=== PATIENT | male | born 1940 | race Caucasian/White ===

== ENCOUNTER → 2017-12-21 09:41 | Outpatient (CLI) | payer MEDICARE, OTHER, SELFPAY ==
[2017-12-21 11:00] LABS: PSA,Total - Annual Screen 2.59 ng/mL (0.00-4.00)
== END ==
PROVIDERS: Family Provider Family Medicine; PCP Family Medicine; Visit Provider Nurse Practitioner Adult Health
DX: Z12.5 Encounter for screening for malignant neoplasm of prostate (principal)
CPT/HCPCS: 36415; 84153; G0103

== ENCOUNTER 2018-04-07 10:34 | Inpatient (IN) | payer MEDICARE, OTHER, SELFPAY ==
[2018-04-07 10:35] VITALS: BP 135/72; PULSE 66; RESP 18; TEMP 36.4; O2SAT 99; BMI 30.4
--- NOTE | 2018-04-07 10:47 | CT_ITS ---
STUDY: CT ABDOMEN AND PELVIS WITHOUT CONTRAST REASON FOR EXAM: Male, 78 years old. Mid and lower abdominal pain with nausea and vomiting for 2 days. Previous cholecystectomy and hernia repair. RADIATION DOSAGE (If Supplied By Facility): CTDIvol = ( 10.70 ) mGy, DLP = ( 588.29 ) mGycm TECHNIQUE: Transaxial images were obtained from the dome of the diaphragm to the symphysis pubis without oral contrast, and without intravenous contrast. Sagittal and coronal images were reconstructed. Individualized dose optimization techniques were used for this CT. COMPARISON: None. FINDINGS: The visualized lung bases are unremarkable. The visualized portions of the heart are within normal limits. Normal liver. There are surgical clips in the gallbladder fossa consistent with a prior cholecystectomy. Normal spleen. Pancreas demonstrates a predominant fatty atrophic appearance with a focal area of hyperdensity within the distal body/tail is seen on series 2 image 54 with mild surrounding inflammatory stranding as seen on image 55. Normal bilateral adrenal glands. There is mild cortical atrophy of the right kidney, consistent with chronic medical renal disease. There is mild cortical atrophy of the left kidney, consistent with chronic medical renal disease. Small exophytic cyst along the anterior aspect of the left renal cortex is present. There is a small hiatal hernia. Normal small intestine. Normal colon. The appendix is visualized and appears normal. Normal abdominal aorta. Normal inferior vena cava. Normal retroperitoneum. Normal urinary bladder. There is enlargement of the prostate gland with calcification.. There is a small umbilical hernia containing fat. Suprapubic anterior abdominal wall fat-containing hernia is also noted as seen on series 2 image 83 with defect measuring 1.8 cm. Endplate degenerative changes of L3 is noted. CT/Abdomen/Pelvis without Cont IMPRESSION: 1. Prominently fatty pancreas with a distal body/tail area of hyperdensity and mild surrounding inflammation with underlying early pancreatitis not excluded. Underlying pancreatic lesion is also a consideration. Recommend follow-up imaging with MRI and clinical correlation. 2. Cholecystectomy with otherwise no evidence of additional acute intra-abdominal process. 3. Umbilical and anterior abdominal wall hernias as above. Electronically Signed: Rolan Nguyen DO at 12:27 EDT , Service support ,
--- NOTE | 2018-04-07 10:55 | ED.VISSUMM ---
- ER Visit Summary Date of Service: 04/07/18 Chief Complaint: [] Abdominal pain for a few days and vomiting History of Present Illness: The patient is a 78 M [] history of cholecystectomy distant, common bile duct type stones in 2013 requiring duodenectomy and duodenal jejunal anastomosis per information provided by , history of DVT and PE, currently on Xarelto, reports for the last few days she has had abdominal pain and vomiting he has had no fever, his bowel and bladder habits have been generally unremarkable the abdominal pain persisted he came in for evaluation Indicates his general health has been good for all the above, he had his surgery at [facility], he was discharged from the service of the surgeons sometime ago he generally does not suffer from abdominal pain, he had DVTs related to postop condition is currently on the Xarelto with no complications Physical Examination: [] He is resting comfortably in the bed his vital signs are within normal range she takes his hand and draws it diffusely across his abdomen in a circular pattern complaining of generalized pain his HEENT exam is unremarkable lungs are clear the heart tones are normal he has a vague diffuse discomfort to the abdominal area there is no obvious rebound or some mild guarding and not usually his exam is grossly unremarkable he has no complaints his upper lower extremities and back are unremarkable he is awake and alert answering questions appropriately Test Results: [] Emergency Department Course and Treatment: [] Given all of the above IV fluids pain management labs CT Patient's lab studies are generally unremarkable see those reports, his CT abdomen shows what appears to be inflammation primarily in the mid to tail portion of the pancreas cannot exclude lesion per the radiologist, there is no sign of hepatobiliary dysfunction or common bile duct stone or intrahepatic duct dilatation which he has suffered from in the past, he has required multiple doses of morphine given all the above I have asked the hospital seen further management admission Treatment Plan: [] Disposition: [] Admit stable Impression: [] Intractable abdominal pain vomiting pancreatitis This note was generated with [employer] dictation software. It may contain incorrect words, spelling, and punctuation that were not noted in review of the chart prior to signing ED Disposition - Plan for ED Patient: Chief Complaint: Abd Pain Referrals: Pedro Gonzalez MD [Primary Care Provider] -
[2018-04-07] MEDS: Morphine 4 MG/ML Syringe IV (11:11)
[2018-04-07] MEDS: 0.9% Normal Saline 1,000 ML 125 ML IV ×2 (11:11→16:40)
[2018-04-07] MEDS: Ondansetron 4 MG/2 ML Vial IV ×2 (11:12→14:25)
[2018-04-07 11:18] LABS: Absolute Lymphocyte Count 1.59 X10^3/ul (0.83-4.51); Absolute Neutrophil Count 6.2 X10^3/uL (2.0-7.7); Basophil# 0.02 X10^3/uL; Basophil% 0.2 % (0-1); Eosinophil# 0.05 X10^3/uL; Eosinophils% 0.6 % (0-5); Hematocrit 46.7 % (40-54); Hemoglobin 15.8 g/dl (13.0-16.5); Lymphocyte # 1.59 X10^3/ul (4.0); Lymphocyte % 17.7 % (19-41); Mean Corp Hgb Conc 33.8 g/gl (32-36); Mean Corpuscular Hgb 30.7 pg (27.0-32.0); Mean Corpuscular Volume 90.7 fL (80-94); Mean Platelet Vol. 8.9 fl (6.2-12.0); Monocyte# 1.09 X10^3/uL; Monocyte% 12.1 % (0-10); Neutrophil # 6.22 X10^3/uL (2.7-7.7); Neutrophil % 69.3 % (47-70); POSITIVE COUNT NO; POSITIVE DIFFERENTIAL NO; POSITIVE MORPHOLOGY NO; Platelet Count 170 K/mm3 (150-450); RBC Distribution Width CV 12.6 % (11.6-14.6); RBC Distribution Width SD 41.2 fl (35.1-43.9); Red Blood Count 5.15 M/mm3 (4.6-6.2)
[2018-04-07 11:32] LABS: AST(SGOT) 17 U/L (15-37); Alanine Aminotransfer ALT/SGPT 27 U/L (16-61); Albumin, Serum 3.4 g/dL (3.2-5.0); Alkaline Phosphatase 76 U/L (45-117); Anion Gap 8 (5-15); BUN 12 mg/dL (7-18); BUN/Creat Ratio 11.4 RATIO (10-20); Bilirubin, Direct 0.19 mg/dL (0.00-0.30); Calcium,Total 8.4 mg/dL (8.5-10.1); Chloride 101 mmol/L (98-107); Creatinine, Serum 1.05 mg/dL (0.70-1.30); EST Glomerular Filtration Rate 73 mL/min (>60); Est Glom Filt Rate - Afr Amer 88 mL/min (>60); Globulin 3.2 g/dL (2.2-4.2); Glucose 101 mg/dL (74-106); Lipase 70 U/L (73-393); Potassium 3.9 mmol/L (3.5-5.1); Protein, Total 6.6 g/dL (6.4-8.2); Sodium Level 139 mmol/L (136-145)
[2018-04-07 12:18] LABS: Bacteria 0 SEEN /hpf (None Seen); Mucous, Urine 0 SEEN /hpf (<or=2+); Red Blood Cells-Urine 0 SEEN /hpf (0-5); Squamous Epithelial Cells - UA 0 SEEN /hpf (0-5)
[2018-04-07 12:31] LABS: Color, Urine Yellow (Yellow); Glucose, Dipstick Normal (Normal); Ketone-Dipstick Negative (Negative); Leukocyte Esterase-Dipstick 25 /ul (Negative); Nitrite-Dipstick Negative (Negative); Occult Blood-Urine Negative /ul (Negative); Protein-Dipstick Negative (Negative); Specific Gravity, Urine 1.015 (1.002-1.030); Urine Bilirubin Dipstick Negative (Negative); Urine Clarity Clear (Clear); Urine Urobilinogen Normal (Normal)
[2018-04-07 12:41] LABS: Amorphous Sediment 1+; White Blood Cells 0-5 SEEN /hpf (0-5)
[2018-04-07] MEDS: morphine 8 MG/ML Syringe IV (14:05)
[2018-04-07 14:10] VITALS: BP 188/85; PULSE 68; RESP 16
--- NOTE | 2018-04-07 14:31 | PCM.HP.STD ---
Problem List (1) Pancreatitis Status: Acute Qualifiers: Chronicity: acute Pancreatitis type: unspecified pancreatitis type Acute pancreatitis complication: no infection or necrosis Qualified Code(s): K85.90 - Acute pancreatitis without necrosis or infection, unspecified (2) Debility Status: Acute History of Present Illness Date of Admission: 04/07/18 Chief Complaint: abdominal pain. The patient is a 78 year old M presents with a 2 day history of epigastric abdominal pain. Associated with nausea vomiting. Patient has had a history of biliary stones that have required stents subsequently required a partial duodenal resection. seems to think that there may have been cyst that led to the patient having surgery but is unsure. Patient feels weak overall he has been using a Rollator to get himself around. 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 Patient had a CAT scan that showed a predominantly fatty pancreas with distal body/tail area of hyperdensity and mild surrounding inflammation with underlying early pancreatitis. Lesion could not be ruled out. Patient did require IV morphine to help with his pain as well as Zofran. Patient denies having previous history of pancreatitis. Though patient does note that he has had some low-grade chronic abdominal pain previously. [] Past Medical History Medical History: Medical History (Last Updated 04/07/18 @ 14:37 by Pedro Oneill DO) Anxiety F41.9 BPH (benign prostatic hyperplasia) N40.0 CVA (cerebral vascular accident) I63.9 Depression F32.9 Diverticulosis K57.90 GERD (gastroesophageal reflux disease) K21.9 Hemorrhoid K64.9 Hypothyroid E03.9 NPH (normal pressure hydrocephalus) G91.2 Urinary calculi N20.9 VTE (venous thromboembolism) I82.90 Allergies No Known Allergies Allergy (Verified 04/07/18 10:34) Home Medications: Ambulatory Orders Medication Instructions Recorded Cholecalciferol (VIT D3) [Vitamin 5,000 unit PO DAILY 08/06/14 D3] Esomeprazole Mag Trihydrate 40 mg PO DAILY 10/14/16 [Nexium] Finasteride [Proscar] 5 mg PO DAILY 10/14/16 Levothyroxine [Synthroid] 75 mcg PO MOTUWETHFRSA 10/14/16 Magnesium 400 mg PO DAILY 10/14/16 Tamsulosin HCl [Flomax] 0.4 mg PO DAILY 10/14/16 L.acidoph,Paracasei, B.lactis 1 each PO DAILY 05/24/17 [Probiotic] Rivaroxaban [Xarelto] 20 mg PO DAILY 05/24/17 Vitamin B Complex 1 each PO DAILY 05/24/17 buPROPion XL [Wellbutrin Xl] 300 mg PO DAILY 05/24/17 Surgical History: Surgical History (Last Updated 04/07/18 @ 14:39 by Pedro Oneill DO) Hx of resection of small bowel Z90.49 removal of part of duodenum. S/P cholecystectomy Z90.49 Psychiatric History: Anxiety, Depression Lives: Spouse/ Significant Other Smoking Status: Never smoker Tobacco Use: Non-smoker Alcohol: None Drugs: None - *Family History Maternal History Items: Heart Disease Review of Systems Constitutional: Reports: Anorexia. Denies: Chills, Fever Eyes: Denies: Blurred vision, Double vision HEENT: Denies: Head Aches, Sinus Congestion, Sinus Drainage Cardiovascular: Denies: Chest Pain, Palpitations Respiratory: Denies: Cough, Shortness of breath at rest, Sputum production Gastrointestinal: Reports: Abdominal Pain, Constipation, Nausea, Vomiting. Denies: Diarrhea Genitourinary: Denies: Dysuria Musculoskeletal: Denies: Joint Pain, Joint Tenderness Skin: Denies: Rash, Wounds Neurological: Reports: Balance problems. Denies: Blurred vision, Double vision, Change in Speech Psychiatric: Reports: Anxiety, Depression Hematologic/ Lymphatic: Reports: Hx of blood clot. Denies: Easy Bruising, Easy Bleeding Comment: All review of systems are negative except as mentioned in the history of present illness and the other review of systems. VTE Information - Inpt Only VTE Present on Admission: No VTE Mechan Device Prophylaxis: None VTE Pharm Prophylaxis ordered?: Yes Patient Problems: Active and Suspected Problems Pancreatitis (Acute) Debility (Acute) - Physical Exam General: Alert, Cooperative, - - uncomfortable HEENT: Atraumatic, Normocephalic Oral: Moist Mucosa, No Gingival or Mucosal Lesions/ Ulcerations Neck: No Nodes, Thyroid Normal Size and Texture Lungs: Clear to auscultation, Normal air movement, No rhonchi, No wheeze Cardiovascular: Regular rate, Regular Rhythm, Normal S1, Normal S2, No murmurs Abdomen: Bowel Sounds Present, Soft, Guarding, - - epigastric tenderness Extremities: No edema, No Calf Tenderness Skin: No rashes, No breakdown Musculoskeletal: No Tenderness to Palpation of Joints or Extremities, No Muscle Wasting Neurological: Neuro grossly intact, Muscle tone normal Psych/Mental Status: Normal Affect, Appropriate Vital Signs Temp Pulse Resp BP Pulse Ox 36.4 C L 68 16 188/85 H 99 04/07/18 10:35 04/07/18 14:10 04/07/18 14:10 04/07/18 14:10 04/07/18 10:35 Oxygen Delivery Method Room Air Weight: 90.718 kg Body Mass Index (BMI) 30.4 Laboratory Tests Past 24 Hrs 04/07/18 04/07/18 04/07/18 10:56 10:56 12:10 WBC 9.0 RBC 5.15 Hgb 15.8 Hct 46.7 MCV 90.7 MCH 30.7 MCHC 33.8 RDW 12.6 RDW Differential 41.2 Plt Count 170 MPV 8.9 Immature Gran % (Auto) 0.100 Neut % (Auto) 69.3 Lymph % (Auto) 17.7 L [place] % (Auto) 12.1 H Eos % (Auto) 0.6 Baso % (Auto) 0.2 Absolute Neuts (auto) 6.2 Absolute Lymphs (auto) 1.59 Total Counted Not Reportable Sodium 139 Potassium 3.9 Chloride 101 Carbon Dioxide 30.0 Anion Gap 8 BUN 12 Creatinine 1.05 Estim Creat Clear Calc 57.00 Est GFR (MDRD) Af Amer 88 Est GFR (MDRD) Non-Af 73 BUN/Creatinine Ratio 11.4 Glucose 101 Calcium 8.4 L Total Bilirubin 0.60 Direct Bilirubin 0.19 AST 17 ALT 27 Alkaline Phosphatase 76 Total Protein 6.6 Albumin 3.4 Globulin 3.2 Lipase 70 L Urine Color Yellow Urine Clarity Clear Urine pH 8.0 Ur Specific [place] 1.015 Urine Protein Negative Urine Glucose (UA) Normal Urine Ketones Negative Urine Occult Blood Negative Urine Nitrite Negative Urine Bilirubin Negative Urine Urobilinogen Normal Ur Leukocyte Esterase 25 H Urine RBC 0 SEEN Urine WBC 0-5 SEEN Ur Squamous Epith Cells 0 SEEN Amorphous Sediment 1+ Urine Bacteria 0 SEEN Urine Mucus 0 SEEN Clinical Impression(s) from Imaging Studies Abdomen/Pelvis CT 04/07/18 10:47 IMPRESSION: 1. Prominently fatty pancreas with a distal body/tail area of hyperdensity and mild surrounding inflammation with underlying early pancreatitis not excluded. Underlying pancreatic lesion is also a consideration. Recommend follow-up imaging with MRI and clinical correlation. 2. Cholecystectomy with otherwise no evidence of additional acute intra-abdominal process. 3. Umbilical and anterior abdominal wall hernias as above. Electronically Signed: Rolan NguyenDO at 12:27 EDT , Service support , Assessment/Plan All Active Problems Pancreatitis (Acute) Debility (Acute) 1. Acute pancreatitis Patient is status post cholecystectomy. Patient has also had duodenal partial resection Lipase was normal but CAT scan shows inflammation around the pancreas I suspect the patient has probably had chronic low-grade pancreatitis which may be a reason why he is not manifesting more elevated levels of lipase at this time Plan is to give IV fluids, IV pain control and antiemetics Given that the mass could not be ruled out rule out any other process. I doubt pancreatic cancer and explained to the patient that this is not a presentation of the cancer I did explain to the patient that if he does get worse that he would likely require transfer to tertiary facility get a specialist to do surgery on him here given his modified anatomy. Patient expressed understanding [facility] and try to see if I can get any information about the patient's previous surgeries but unfortunately the information is very limited and I saw no surgical notes. Will request records from [facility] 2. Debility Patient has baseline balance issues which may relate this prior brainstem stroke but there is also mention that he had normal pressure hydrocephalus by neurology studies previously seen There was some mention of putting shunting but that never came to be but the patient has not seen a neurologist since his last one retired 3 year Patient will be seen by physical therapy to see if he will have any therapy needs upon discharge 3. Venous thromboembolic disease: Patient is on Xarelto, to which we will continue. 4. DVT prophylaxis: Patient is anticoagulated on Xarelto 5. Advanced directives: Asked the patient about CPR, intubation and PEG tube's. Patient states that he does not want CPR nor be intubated. He did not have an answer for PEG tube at this time. Therefore, patient will be DNR Comfort Care arrest Code Visit Inpatient E&M: 07328 Init Hosp L3
--- NOTE | 2018-04-07 14:35 | HP.PCM_ITS ---
Problem List (1) Pancreatitis Status: Acute Qualifiers: Chronicity: acute Pancreatitis type: unspecified pancreatitis type Acute pancreatitis complication: no infection or necrosis Qualified Code(s): K85.90 - Acute pancreatitis without necrosis or infection, unspecified (2) Debility Status: Acute History of Present Illness Date of Admission: 04/07/18 Chief Complaint: abdominal pain. The patient is a 78 year old M presents with a 2 day history of epigastric abdominal pain. Associated with nausea vomiting. Patient has had a history of biliary stones that have required stents subsequently required a partial duodenal resection. seems to think that there may have been cyst that led to the patient having surgery but is unsure. Patient feels weak overall he has been using a Rollator to get himself around. 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 Patient had a CAT scan that showed a predominantly fatty pancreas with distal body/tail area of hyperdensity and mild surrounding inflammation with underlying early pancreatitis. Lesion could not be ruled out. Patient did require IV morphine to help with his pain as well as Zofran. Patient denies having previous history of pancreatitis. Though patient does note that he has had some low-grade chronic abdominal pain previously. [] Past Medical History Medical History: Medical History (Last Updated 04/07/18 @ 14:37 by Pedro Oneill DO) Anxiety F41.9 BPH (benign prostatic hyperplasia) N40.0 CVA (cerebral vascular accident) I63.9 Depression F32.9 Diverticulosis K57.90 GERD (gastroesophageal reflux disease) K21.9 Hemorrhoid K64.9 Hypothyroid E03.9 NPH (normal pressure hydrocephalus) G91.2 Urinary calculi N20.9 VTE (venous thromboembolism) I82.90 Allergies No Known Allergies Allergy (Verified 04/07/18 10:34) Home Medications: Ambulatory Orders Medication Instructions Recorded Cholecalciferol (VIT D3) [Vitamin 5,000 unit PO DAILY 08/06/14 D3] Esomeprazole Mag Trihydrate 40 mg PO DAILY 10/14/16 [Nexium] Finasteride [Proscar] 5 mg PO DAILY 10/14/16 Levothyroxine [Synthroid] 75 mcg PO MOTUWETHFRSA 10/14/16 Magnesium 400 mg PO DAILY 10/14/16 Tamsulosin HCl [Flomax] 0.4 mg PO DAILY 10/14/16 L.acidoph,Paracasei, B.lactis 1 each PO DAILY 05/24/17 [Probiotic] Rivaroxaban [Xarelto] 20 mg PO DAILY 05/24/17 Vitamin B Complex 1 each PO DAILY 05/24/17 buPROPion XL [Wellbutrin Xl] 300 mg PO DAILY 05/24/17 Surgical History: Surgical History (Last Updated 04/07/18 @ 14:39 by Pedro Oneill DO) Hx of resection of small bowel Z90.49 removal of part of duodenum. S/P cholecystectomy Z90.49 Psychiatric History: Anxiety, Depression Lives: Spouse/ Significant Other Smoking Status: Never smoker Tobacco Use: Non-smoker Alcohol: None Drugs: None - *Family History Maternal History Items: Heart Disease Review of Systems Constitutional: Reports: Anorexia. Denies: Chills, Fever Eyes: Denies: Blurred vision, Double vision HEENT: Denies: Head Aches, Sinus Congestion, Sinus Drainage Cardiovascular: Denies: Chest Pain, Palpitations Respiratory: Denies: Cough, Shortness of breath at rest, Sputum production Gastrointestinal: Reports: Abdominal Pain, Constipation, Nausea, Vomiting. Denies: Diarrhea Genitourinary: Denies: Dysuria Musculoskeletal: Denies: Joint Pain, Joint Tenderness Skin: Denies: Rash, Wounds Neurological: Reports: Balance problems. Denies: Blurred vision, Double vision , Change in Speech Psychiatric: Reports: Anxiety, Depression Hematologic/ Lymphatic: Reports: Hx of blood clot. Denies: Easy Bruising, Easy Bleeding Comment: All review of systems are negative except as mentioned in the history of present illness and the other review of systems. VTE Information - Inpt Only VTE Present on Admission: No VTE Mechan Device Prophylaxis: None VTE Pharm Prophylaxis ordered?: Yes Patient Problems: Active and Suspected Problems Pancreatitis (Acute) Debility (Acute) - Physical Exam General: Alert, Cooperative, - - uncomfortable HEENT: Atraumatic, Normocephalic Oral: Moist Mucosa, No Gingival or Mucosal Lesions/ Ulcerations Neck: No Nodes, Thyroid Normal Size and Texture Lungs: Clear to auscultation, Normal air movement, No rhonchi, No wheeze Cardiovascular: Regular rate, Regular Rhythm, Normal S1, Normal S2, No murmurs Abdomen: Bowel Sounds Present, Soft, Guarding, - - epigastric tenderness Extremities: No edema, No Calf Tenderness Skin: No rashes, No breakdown Musculoskeletal: No Tenderness to Palpation of Joints or Extremities, No Muscle Wasting Neurological: Neuro grossly intact, Muscle tone normal Psych/Mental Status: Normal Affect, Appropriate Vital Signs Temp Pulse Resp BP Pulse Ox 36.4 C L 68 16 188/85 H 99 04/07/18 10:35 04/07/18 14:10 04/07/18 14:10 04/07/18 14:10 04/07/18 10:35 Oxygen Delivery Method Room Air Weight: 90.718 kg Body Mass Index (BMI) 30.4 Laboratory Tests Past 24 Hrs 04/07/18 04/07/18 04/07/18 10:56 10:56 12:10 WBC 9.0 RBC 5.15 Hgb 15.8 Hct 46.7 MCV 90.7 MCH 30.7 MCHC 33.8 RDW 12.6 RDW Differential 41.2 Plt Count 170 MPV 8.9 Immature Gran % (Auto) 0.100 Neut % (Auto) 69.3 Lymph % (Auto) 17.7 L [place] % (Auto) 12.1 H Eos % (Auto) 0.6 Baso % (Auto) 0.2 Absolute Neuts (auto) 6.2 Absolute Lymphs (auto) 1.59 Total Counted Not Reportable Sodium 139 Potassium 3.9 Chloride 101 Carbon Dioxide 30.0 Anion Gap 8 BUN 12 Creatinine 1.05 Estim Creat Clear Calc 57.00 Est GFR (MDRD) Af Amer 88 Est GFR (MDRD) Non-Af 73 BUN/Creatinine Ratio 11.4 Glucose 101 Calcium 8.4 L Total Bilirubin 0.60 Direct Bilirubin 0.19 AST 17 ALT 27 Alkaline Phosphatase 76 Total Protein 6.6 Albumin 3.4 Globulin 3.2 Lipase 70 L Urine Color Yellow Urine Clarity Clear Urine pH 8.0 Ur Specific [place] 1.015 Urine Protein Negative Urine Glucose (UA) Normal Urine Ketones Negative Urine Occult Blood Negative Urine Nitrite Negative Urine Bilirubin Negative Urine Urobilinogen Normal Ur Leukocyte Esterase 25 H Urine RBC 0 SEEN Urine WBC 0-5 SEEN Ur Squamous Epith Cells 0 SEEN Amorphous Sediment 1+ Urine Bacteria 0 SEEN Urine Mucus 0 SEEN Clinical Impression(s) from Imaging Studies Abdomen/Pelvis CT 04/07/18 10:47 IMPRESSION: 1. Prominently fatty pancreas with a distal body/tail area of hyperdensity and mild surrounding inflammation with underlying early pancreatitis not excluded. Underlying pancreatic lesion is also a consideration. Recommend follow-up imaging with MRI and clinical correlation. 2. Cholecystectomy with otherwise no evidence of additional acute intra-abdominal process. 3. Umbilical and anterior abdominal wall hernias as above. Electronically Signed: Rolan NguyenDO at 12:27 EDT , Service support , Assessment/Plan All Active Problems Pancreatitis (Acute) Debility (Acute) 1. Acute pancreatitis * Patient is status post cholecystectomy. Patient has also had duodenal partial resection * Lipase was normal but CAT scan shows inflammation around the pancreas * I suspect the patient has probably had chronic low-grade pancreatitis which may be a reason why he is not manifesting more elevated levels of lipase at this time * Plan is to give IV fluids, IV pain control and antiemetics * Given that the mass could not be ruled out rule out any other process. I doubt pancreatic cancer and explained to the patient that this is not a presentation of the cancer * I did explain to the patient that if he does get worse that he would likely require transfer to tertiary facility get a specialist to do surgery on him here given his modified anatomy. Patient expressed understanding * [facility] to see if I can get any information about the patient's previous surgeries but unfortunately the information is very limited and I saw no surgical notes. Will request records from [facility] 2. Debility * Patient has baseline balance issues which may relate this prior brainstem stroke but there is also mention that he had normal pressure hydrocephalus by neurology studies previously seen * There was some mention of putting shunting but that never came to be but the patient has not seen a neurologist since his last one retired 3 year * Patient will be seen by physical therapy to see if he will have any therapy needs upon discharge 3. Venous thromboembolic disease: Patient is on Xarelto, to which we will continue. 4. DVT prophylaxis: Patient is anticoagulated on Xarelto 5. Advanced directives: Asked the patient about CPR, intubation and PEG tube' s. Patient states that he does not want CPR nor be intubated. He did not have an answer for PEG tube at this time. Therefore, patient will be DNR Comfort Care arrest Code Visit Inpatient E&M: 54662 Init Hosp L3
[2018-04-07 15:23] VITALS: BMI 29.9
--- NOTE | 2018-04-07 15:23 | MRI_ITS ---
STUDY: MR CHOLANGIOPANCREATOGRAPHY (MRCP) REASON FOR EXAM: Male, 78 years old. Pancreatitis, abdominal pain for 3 days. History of partial duodenectomy with duodenal jejunal anastomosis lockage. Cholecystectomy. TECHNIQUE: Multisequence multiplanar MRI of the abdomen without contrast, with MRCP. COMPARISON: CT abdomen and pelvis 04/07/2018, 08/05/2014. FINDINGS: Lung bases clear, heart size normal, distal esophagus normal. Body wall soft tissues unremarkable. Osseous structures unremarkable. Evaluated portions of the kidneys are normal. Adrenal glands normal. Spleen normal. Evaluated portions of the stomach, small and large bowel exhibits no acute abnormality. The liver parenchyma is normal in signal characteristics on all sequences with normal hepatic size. There is no intrahepatic biliary ductal dilatation. The gallbladder is surgically absent. Altered surgical anatomy of the 2nd portion of duodenum. Anastomosis of a small limb of duodenum and jejunum into which the common bile duct and pancreatic duct inserts. The common hepatic duct measures up to 7.5 mm. The common bile duct is nondilated, 2 5 mm. There is no apparent filling defect. No evidence of choledocholithiasis. On T2-weighted fat-saturated imaging there is no apparent inflammatory induration or edema surrounding the pancreas. The pancreas is prominently atrophic with fatty replacement. No evidence of acute pancreatitis. MRI/MRCP Abdomen without Contrast IMPRESSION: No acute abnormality of the intrahepatic or extrahepatic biliary tree or pancreatic duct. No evidence of acute pancreatitis. Electronically Signed: Tio Dawson, at 13:31 EDT Tel , Service support ,
--- NOTE | 2018-04-07 16:10 | PCA ---
Addendum entered by Rajinder Khan 04/07/18 18:46: Records received from [facility]. Placed on pt chart and informed dry charge process attendant. Original Note: Obtained signed release of medical records and faxed to [facility] [phone].
[2018-04-07 16:15] VITALS: PULSE 80
[2018-04-07] MEDS: Tamsulosin HCl 0.4 MG Capsule PO (16:42)
[2018-04-07] MEDS: Finasteride 5 MG Tablet PO (16:42)
[2018-04-07] MEDS: Rivaroxaban 20 MG Tablet PO (16:42)
[2018-04-07 20:45] VITALS: BP 149/76; PULSE 79; RESP 18; TEMP 37; O2SAT 98
[2018-04-08] MEDS: 0.9% Normal Saline 1,000 ML 125 ML IV ×2 (00:52→08:00)
[2018-04-08 02:24] VITALS: BP 145/70; PULSE 80; RESP 18; TEMP 37.1; O2SAT 96
[2018-04-08] MEDS: Levothyroxine 75 MCG Tablet PO (05:25)
[2018-04-08 06:07] LABS: Anion Gap 8 (5-15); BUN 8 mg/dL (7-18); BUN/Creat Ratio 8.9 RATIO (10-20); Calcium,Total 7.8 mg/dL (8.5-10.1); Chloride 107 mmol/L (98-107); Cholesterol 163 mg/dL (200); EST Glomerular Filtration Rate 88 mL/min (>60); Est Glom Filt Rate - Afr Amer 106 mL/min (>60); Glucose 104 mg/dL (74-106); High Density Lipoprotein 45 mg/dL; Lipase 55 U/L (73-393); Sodium Level 142 mmol/L (136-145); Triglycerides 97 mg/dL; Very Low Density Lipoprotein 19 mg/dL (5-40)
[2018-04-08 07:53] VITALS: BP 140/104; PULSE 70; RESP 18; TEMP 36.6; O2SAT 97
[2018-04-08] MEDS: Vitamin B Comp W-C Capsule 1 CAP PO (07:59)
[2018-04-08] MEDS: buPROPion (XL) 300 MG TABLET.XL PO (07:59)
[2018-04-08] MEDS: Pantoprazole Sodium 40 MG Tablet PO (07:59)
[2018-04-08] MEDS: Enoxaparin 40 MG/0.4 ML Syringe SC (08:00)
[2018-04-08] MEDS: Tamsulosin HCl 0.4 MG Capsule PO (08:03)
[2018-04-08 08:08] VITALS: PULSE 70
[2018-04-08] MEDS: Rivaroxaban 20 MG Tablet PO (10:11)
[2018-04-08] MEDS: Finasteride 5 MG Tablet PO (10:11)
--- NOTE | 2018-04-08 11:25 | CASEMGMT ---
RN MARÍA Face to Face with patient for initial transition planning/care coordination assessment. RN CM introduced self and role at [facility]. Patient sitting in chair, alert and oriented, at bedside. Patient willing to participate in assessment and is able to answer all questions appropriately. Care providers, pharmacy, and demographics verified. See link attached. Patient wishes to discharge home, denies need for home health at this time. Patient states he has no further needs or concerns at this time. CM to follow for discharge planning needs that may arise. Disposition Plan: Patient to discharge home with family support and follow-up plans in place.
[2018-04-08] MEDS: LORazepam 0.5 MG Tablet PO (11:39)
--- NOTE | 2018-04-08 13:56 | PCM.DC ---
- Discharge Diagnoses Current Active Problems: Current Active and Chronic Problems (Last Updated 04/07/18 @ 14:37 by Pedro Oneill DO) Pancreatitis (Acute) Debility (Acute) You will use the following diet at home:: No restrictions Your food should be the consistency of: Regular Your liquids should be the consistency of: Regular/Thin Discharge Activity: Return to Normal Activity Allergies/Adverse Reactions: Allergies No Known Allergies Allergy (Verified 04/07/18 10:34) Medications to take at Discharge Cholecalciferol (VIT D3) [Vitamin D3] 5,000 unit PO DAILY 08/06/14 Esomeprazole Mag Trihydrate [Nexium] 40 mg PO DAILY 10/14/16 Finasteride [Proscar] 5 mg PO DAILY 10/14/16 Levothyroxine [Synthroid] 75 mcg PO MOTUWETHFRSA 10/14/16 Magnesium 400 mg PO DAILY 10/14/16 Tamsulosin HCl [Flomax] 0.4 mg PO DAILY 10/14/16 L.acidoph,Paracasei, B.lactis [Probiotic] 1 each PO DAILY 05/24/17 Rivaroxaban [Xarelto] 20 mg PO DAILY 05/24/17 Vitamin B Complex 1 each PO DAILY 05/24/17 buPROPion XL [Wellbutrin Xl] 300 mg PO DAILY 05/24/17 Primary Care Physician: Pedro Gonzalez MD [Primary Care Provider] - Please follow up with your Primary Care Physician in: 1-2 weeks Test Results: Test results from this visit will be discussed in further detail at your follow-up appointment, if applicable. Proposed Discharge Date: 04/08/18
--- NOTE | 2018-04-08 14:00 | DCINST_ITS ---
- Discharge Diagnoses Current Active Problems: Current Active and Chronic Problems (Last Updated 04/07/18 @ 14:37 by Pedro Oneill DO) Pancreatitis (Acute) Debility (Acute) You will use the following diet at home:: No restrictions Your food should be the consistency of: Regular Your liquids should be the consistency of: Regular/Thin Discharge Activity: Return to Normal Activity Allergies/Adverse Reactions: Allergies No Known Allergies Allergy (Verified 04/07/18 10:34) Medications to take at Discharge Cholecalciferol (VIT D3) [Vitamin D3] 5,000 unit PO DAILY 08/06/14 Esomeprazole Mag Trihydrate [Nexium] 40 mg PO DAILY 10/14/16 Finasteride [Proscar] 5 mg PO DAILY 10/14/16 Levothyroxine [Synthroid] 75 mcg PO MOTUWETHFRSA 10/14/16 Magnesium 400 mg PO DAILY 10/14/16 Tamsulosin HCl [Flomax] 0.4 mg PO DAILY 10/14/16 L.acidoph,Paracasei, B.lactis [Probiotic] 1 each PO DAILY 05/24/17 Rivaroxaban [Xarelto] 20 mg PO DAILY 05/24/17 Vitamin B Complex 1 each PO DAILY 05/24/17 buPROPion XL [Wellbutrin Xl] 300 mg PO DAILY 05/24/17 Primary Care Physician: Pedro Gonzalez MD [Primary Care Provider] - Please follow up with your Primary Care Physician in: 1-2 weeks Test Results: Test results from this visit will be discussed in further detail at your follow- up appointment, if applicable. Proposed Discharge Date: 04/08/18
--- NOTE | 2018-04-08 14:00 | PCM.DC.SUM ---
<Kash Caballero - Last Filed: 04/08/18 14:00> Discharge Date and Diagnosis Date of Admission: 04/07/18 Date of Discharge: 04/08/18 - Primary Discharge Diagnosis Active and Suspected Problems (Last Updated 04/07/18 @ 14:37 by Pedro Oneill DO) Acute mild Pancreatitis (Acute) Debility (Acute) depression hypothyroidism GERD Hospital Course and Treatment Imaging Results: CT/Abdomen/Pelvis without Cont IMPRESSION: 1. Prominently fatty pancreas with a distal body/tail area of hyperdensity and mild surrounding inflammation with underlying early pancreatitis not excluded. Underlying pancreatic lesion is also a consideration. Recommend follow-up imaging with MRI and clinical correlation. 2. Cholecystectomy with otherwise no evidence of additional acute intra-abdominal process. 3. Umbilical and anterior abdominal wall hernias as above. MRI/MRCP Abdomen without Contrast IMPRESSION: No acute abnormality of the intrahepatic or extrahepatic biliary tree or pancreatic duct. No evidence of acute pancreatitis. Operations: None Procedures: None Summary of Care Provided: Physical exam on day of discharge: General: Resting comfortably NAD Psych: A/Ox3 normal affect HEENT: PEARRLA AT NC Neck: Supple NT CV: RRR no m/t/r/g/h Resp: CTA Abd: [id number] Soft NT no guarding or rigidity Ext: DP2+= no edema Skin: W/D normal turgor Lymph/Heme: No active bleeding or adenopathy Neuro: CN2-12 intact Hospital Course: The patient is a 78 year old M with a hx of CVA, BPH, depression, GERD, hypothyroidism who presented to the ER with severe epigastric pain for 2 days, prior hx of partial duodenal resection, cholecystectomy. He had normal lipase however a CT abdomen showed inflammation around the pancreas. He was placed on fluids and supportive care, clear liquid diet, and as admitted to the medical floor with Mild acute pancreatitis. Trigs were 97. His symptoms improved overnight. He had no further pain in the AM. There was a questionable lesion on the CT and follow up MRI was recommended to better evaluate. MRCP was obtained which was negative. He was discharged home in stable condition. Follow up with your PCP in 1-2 weeks. This patient was seen by Kash Caballero PA-C under the supervision of Dr. Xie [] Discharge Diet: Low fat/ Low Cholesterol Discharge Activity: Return to Normal Activity Home Medications: Medications to take at Discharge Cholecalciferol (VIT D3) [Vitamin D3] 5,000 unit PO DAILY 08/06/14 Esomeprazole Mag Trihydrate [Nexium] 40 mg PO DAILY 10/14/16 Finasteride [Proscar] 5 mg PO DAILY 10/14/16 Levothyroxine [Synthroid] 75 mcg PO MOTUWETHFRSA 10/14/16 Magnesium 400 mg PO DAILY 10/14/16 Tamsulosin HCl [Flomax] 0.4 mg PO DAILY 10/14/16 L.acidoph,Paracasei, B.lactis [Probiotic] 1 each PO DAILY 05/24/17 Rivaroxaban [Xarelto] 20 mg PO DAILY 05/24/17 Vitamin B Complex 1 each PO DAILY 05/24/17 buPROPion XL [Wellbutrin Xl] 300 mg PO DAILY 05/24/17 Primary Care Physician: Pedro Gonzalez MD [Primary Care Provider] - Please follow up with your Primary Care Physician in: 1-2 weeks Disposition: Home Minutes spent on discharge:: 35 Patient Condition:: Stable Medical Necessity - Tobacco Use Smoking Status: Never smoker Tobacco Use: Non-smoker Meaningful Use Info Meaningful Use Diagnoses (Choose all that apply): None applicable <Fortunatocarlos manuelkylieBrightmyriam E - Last Filed: 04/08/18 15:53> Hospital Course and Treatment Summary of Care Provided: Hospitalist note: Discharge summary above reviewed as well as physical examination and I agree with the above treatment discharge plan. Patient was admitted for abdominal pain, found to have findings consistent with acute pancreatitis of unclear etiology. Surprisingly, his LFT and lipase were normal. CT scan abdomen and pelvis without contrast revealed fatty pancreas with distal body/tail area hyperdensity and mild surrounding inflammation. Patient is status post cholecystectomy. His routine blood work was unremarkable. His vital signs are stable. He was treated with IV fluids and IV pain medications as well as IV antiemetics and his symptoms improved. His lipid profile was normal. Repeat LFT remained normal. According to the official report of the CT scan abdomen, did mention that patient may have underlying pancreatic lesion for which MRCP done and revealed no acute abnormality, normal intrahepatic and extrahepatic biliary tree and pancreatic duct and no evidence of acute appendicitis. Patient discharged home in a stable medical condition, discharged on his chronic home medication without any changes, recommended follow-up with PCP in 1-2 weeks. - Physical Exam General: Alert, Oriented x3, Cooperative, No apparent distress. HEENT: Atraumatic, PERRLA, EOMI. Neck: Supple, No JVD, Negative Carotid Bruits, Trachea Midline, Thyroid Normal. Lungs: Clear to auscultation, Normal air movement, No rhonchi, No wheeze, No rales. Cardiovascular: Regular rate, Regular Rhythm, Normal S1, Normal S2, PMI Normal. Abdomen: Bowel Sounds Present, Soft, Non Tender, Non-Distended, No Hepato-splenomegaly. Extremities: No clubbing, No cyanosis, No edema Skin: No rashes, No breakdown Neurological: Neuro grossly intact Vital Signs are stable. This note was generated with [employer] dictation software. It may contain incorrect words, spelling, and punctuation that were not noted in checking the note before signing. Minutes spent on discharge:: 25 Patient Condition:: Stable Meaningful Use Info Meaningful Use Diagnoses (Choose all that apply): None applicable Code Visit Inpatient E&M: 83999 Disch Hosp
--- NOTE | 2018-04-08 14:08 | DS.PCM_ITS ---
<Kash Caballero - Last Filed: 04/08/18 14:00> Discharge Date and Diagnosis Date of Admission: 04/07/18 Date of Discharge: 04/08/18 - Primary Discharge Diagnosis Active and Suspected Problems (Last Updated 04/07/18 @ 14:37 by Pedro Oneill DO ) Acute mild Pancreatitis (Acute) Debility (Acute) depression hypothyroidism GERD Hospital Course and Treatment Imaging Results: CT/Abdomen/Pelvis without Cont IMPRESSION: 1. Prominently fatty pancreas with a distal body/tail area of hyperdensity and mild surrounding inflammation with underlying early pancreatitis not excluded. Underlying pancreatic lesion is also a consideration. Recommend follow-up imaging with MRI and clinical correlation. 2. Cholecystectomy with otherwise no evidence of additional acute intra-abdominal process. 3. Umbilical and anterior abdominal wall hernias as above. MRI/MRCP Abdomen without Contrast IMPRESSION: No acute abnormality of the intrahepatic or extrahepatic biliary tree or pancreatic duct. No evidence of acute pancreatitis. Operations: None Procedures: None Summary of Care Provided: Physical exam on day of discharge: General: Resting comfortably NAD Psych: A/Ox3 normal affect HEENT: PEARRLA AT NC Neck: Supple NT CV: RRR no m/t/r/g/h Resp: CTA Abd: [id number] Soft NT no guarding or rigidity Ext: DP2+= no edema Skin: W/D normal turgor Lymph/Heme: No active bleeding or adenopathy Neuro: CN2-12 intact Hospital Course: The patient is a 78 year old M with a hx of CVA, BPH, depression, GERD, hypothyroidism who presented to the ER with severe epigastric pain for 2 days, prior hx of partial duodenal resection, cholecystectomy. He had normal lipase however a CT abdomen showed inflammation around the pancreas. He was placed on fluids and supportive care, clear liquid diet, and as admitted to the medical floor with Mild acute pancreatitis. Trigs were 97. His symptoms improved overnight. He had no further pain in the AM. There was a questionable lesion on the CT and follow up MRI was recommended to better evaluate. MRCP was obtained which was negative. He was discharged home in stable condition. Follow up with your PCP in 1-2 weeks. This patient was seen by Kash Caballero PA-C under the supervision of Dr. Xie [] Discharge Diet: Low fat/ Low Cholesterol Discharge Activity: Return to Normal Activity Home Medications: Medications to take at Discharge Cholecalciferol (VIT D3) [Vitamin D3] 5,000 unit PO DAILY 08/06/14 Esomeprazole Mag Trihydrate [Nexium] 40 mg PO DAILY 10/14/16 Finasteride [Proscar] 5 mg PO DAILY 10/14/16 Levothyroxine [Synthroid] 75 mcg PO MOTUWETHFRSA 10/14/16 Magnesium 400 mg PO DAILY 10/14/16 Tamsulosin HCl [Flomax] 0.4 mg PO DAILY 10/14/16 L.acidoph,Paracasei, B.lactis [Probiotic] 1 each PO DAILY 05/24/17 Rivaroxaban [Xarelto] 20 mg PO DAILY 05/24/17 Vitamin B Complex 1 each PO DAILY 05/24/17 buPROPion XL [Wellbutrin Xl] 300 mg PO DAILY 05/24/17 Primary Care Physician: Pedro Gonzalez MD [Primary Care Provider] - Please follow up with your Primary Care Physician in: 1-2 weeks Disposition: Home Minutes spent on discharge:: 35 Patient Condition:: Stable Medical Necessity - Tobacco Use Smoking Status: Never smoker Tobacco Use: Non-smoker Meaningful Use Info Meaningful Use Diagnoses (Choose all that apply): None applicable <Fortunatocarlos manuelkylieBrightmyriam E - Last Filed: 04/08/18 15:53> Hospital Course and Treatment Summary of Care Provided: Hospitalist note: Discharge summary above reviewed as well as physical examination and I agree with the above treatment discharge plan. Patient was admitted for abdominal pain, found to have findings consistent with acute pancreatitis of unclear etiology. Surprisingly, his LFT and lipase were normal. CT scan abdomen and pelvis without contrast revealed fatty pancreas with distal body/tail area hyperdensity and mild surrounding inflammation. Patient is status post cholecystectomy. His routine blood work was unremarkable. His vital signs are stable. He was treated with IV fluids and IV pain medications as well as IV antiemetics and his symptoms improved. His lipid profile was normal. Repeat LFT remained normal. According to the official report of the CT scan abdomen, did mention that patient may have underlying pancreatic lesion for which MRCP done and revealed no acute abnormality, normal intrahepatic and extrahepatic biliary tree and pancreatic duct and no evidence of acute appendicitis. Patient discharged home in a stable medical condition, discharged on his chronic home medication without any changes, recommended follow-up with PCP in 1 -2 weeks. - Physical Exam General: Alert, Oriented x3, Cooperative, No apparent distress. HEENT: Atraumatic, PERRLA, EOMI. Neck: Supple, No JVD, Negative Carotid Bruits, Trachea Midline, Thyroid Normal. Lungs: Clear to auscultation, Normal air movement, No rhonchi, No wheeze, No rales. Cardiovascular: Regular rate, Regular Rhythm, Normal S1, Normal S2, PMI Normal. Abdomen: Bowel Sounds Present, Soft, Non Tender, Non-Distended, No Hepato- splenomegaly. Extremities: No clubbing, No cyanosis, No edema Skin: No rashes, No breakdown Neurological: Neuro grossly intact Vital Signs are stable. This note was generated with [employer] dictation software. It may contain incorrect words, spelling, and punctuation that were not noted in checking the note before signing. Minutes spent on discharge:: 25 Patient Condition:: Stable Meaningful Use Info Meaningful Use Diagnoses (Choose all that apply): None applicable Code Visit Inpatient E&M: 91829 Disch Hosp
[2018-04-08 14:23] VITALS: BP 146/74; PULSE 79; RESP 18; TEMP 36.7; O2SAT 95
--- NOTE | 2018-04-08 14:39 | CHAPLAIN ---
Type of Pastoral Visit _x__ Initial Visit ___ Follow-up Visit ___ On-call Visit ___ General Patient Visit ___ Spiritual Assessment ___ Family Conference ___ Bereavement ___ Rapid Response ___ Code Blue ___ Other (describe below) Pastoral Care Referral From _x__ Patient ___ Family ___ Nurse ___ Physician ___ Car Tester ___ Driver'S License Reviewing Officer ___ Other (describe below) Sacrament/Intervention _x__ Active listening ___ Anointing ___ Jainism ___ Bereavement ___ Communion _x__ Sadia exploration ___ ___ Life review _x__ Prayer ___ Reconciliation ___ Sacrament of Sick ___ Supportive presence ___ Wedding ___ Other (describe below) Pastoral Comments patient is waiting on MRI results; pt describes his condition; spouse is with him; RN comes into room to begin discharge; prayer is given as pt prepares to leave
--- NOTE | 2018-04-11 10:50 | CASEMGMT ---
FOLLOW-UP CALL: Call placed to patient with no answer. Voicemail left with return contact information for outpatient case manager.
== END 2018-04-08 14:48 | disposition home or self-care (01) | DRG 439 ==
LOC: ED 14:40 → MS3 15:06
PROVIDERS: Emergency Provider Emergency Medicine; Family Provider Family Medicine; PCP Family Medicine; Visit Provider Hospitalist
DX: K85.90 Acute pancreatitis without necrosis or infection, unspecified (principal); G91.2 (Idiopathic) normal pressure hydrocephalus; Z98.0 Intestinal bypass and anastomosis status; R53.81 Other malaise; F32.9 Major depressive disorder, single episode, unspecified; E03.9 Hypothyroidism, unspecified; K21.9 Gastro-esophageal reflux disease without esophagitis; Z86.718 Personal history of other venous thrombosis and embolism; Z86.711 Personal history of pulmonary embolism; Z79.02 Long term (current) use of antithrombotics/antiplatelets; Z66 Do not resuscitate
CPT/HCPCS: 36415; 74176; 74181; 80048; 80061; 80076; 81001; 83690; 85025; 97162; 97165; 99282; J7030; A4216; J2405

== ENCOUNTER → 2018-04-16 11:47 | Outpatient (CLI) | payer MEDICARE, OTHER, SELFPAY ==
[2018-04-16 13:43] LABS: Absolute Lymphocyte Count 1.88 X10^3/ul (0.83-4.51); Absolute Neutrophil Count 3.2 X10^3/uL (2.0-7.7); Basophil# 0.03 X10^3/uL; Basophil% 0.5 % (0-1); Eosinophil# 0.12 X10^3/uL; Hematocrit 49.3 % (40-54); Hemoglobin 16.1 g/dl (13.0-16.5); Lymphocyte # 1.88 X10^3/ul (4.0); Lymphocyte % 31.3 % (19-41); Mean Corp Hgb Conc 32.7 g/gl (32-36); Mean Corpuscular Hgb 30.4 pg (27.0-32.0); Mean Platelet Vol. 9.5 fl (6.2-12.0); Monocyte# 0.76 X10^3/uL; Monocyte% 12.6 % (0-10); Neutrophil # 3.21 X10^3/uL (2.7-7.7); Neutrophil % 53.4 % (47-70); Platelet Count 215 K/mm3 (150-450); RBC Distribution Width CV 12.7 % (11.6-14.6); RBC Distribution Width SD 42.9 fl (35.1-43.9)
[2018-04-16 13:46] LABS: POSITIVE COUNT NO; POSITIVE DIFFERENTIAL NO; POSITIVE MORPHOLOGY NO
[2018-04-16 15:22] LABS: ALB/GLOB Ratio 0.9 RATIO (0.9-2.4); AST(SGOT) 21 U/L (15-37); Alanine Aminotransfer ALT/SGPT 34 U/L (16-61); Albumin, Serum 3.5 g/dL (3.2-5.0); Alkaline Phosphatase 83 U/L (45-117); Anion Gap 6 (5-15); BUN 11 mg/dL (7-18); BUN/Creat Ratio 9.6 RATIO (10-20); Chloride 107 mmol/L (98-107); Creatinine, Serum 1.15 mg/dL (0.70-1.30); EST Glomerular Filtration Rate 66 mL/min (>60); Est Glom Filt Rate - Afr Amer 79 mL/min (>60); Globulin 3.8 g/dL (2.2-4.2); Glucose 90 mg/dL (74-106); Magnesium 2.5 mg/dL (1.6-2.6); Potassium 4.8 mmol/L (3.5-5.1); Protein, Total 7.3 g/dL (6.4-8.2); Sodium Level 142 mmol/L (136-145)
[2018-04-17 08:20] LABS: Vitamin D,25 Hydroxy 72.2 ng/mL (29.95-100.01)
[2018-04-17 08:31] LABS: PTHIN 42.7 pg/mL (18.4-80.1)
== END ==
PROVIDERS: Family Provider Family Medicine; PCP Family Medicine; Visit Provider Family Medicine
DX: E83.51 Hypocalcemia (principal)
CPT/HCPCS: 36415; 80053; 82306; 83735; 83970; 84443; 85025

== ENCOUNTER → 2018-04-25 07:06 | Outpatient (CLI) | payer MEDICARE, OTHER, SELFPAY | PROVIDERS: Family Provider Family Medicine; PCP Family Medicine; Visit Provider Family Medicine | DX: R26.9 Unspecified abnormalities of gait and mobility (principal) | CPT/HCPCS: 70450 ==

== ENCOUNTER 2018-11-15 04:11 | Inpatient (IN) | payer MEDICARE, OTHER, SELFPAY ==
[2018-11-15 04:13] VITALS: BP 160/90; PULSE 74; RESP 20; TEMP 36.8; O2SAT 98; BMI 30.4
--- NOTE | 2018-11-15 04:47 | ED.VIS.GEN ---
History of Present Illness Chief Complaint: Flank Pain Informant: Patient, Family Narrative: The patient is a 78 M [] patient stated since this morning he has had exquisite burning and sharp pain in his right side. He cannot touch his skin. He is having difficulty moving secondary to the pain. He is tried Tylenol with minimal relief. He is never had this before. He did get chickenpox as a child but is never had her shingles. He is unsure if he got the vaccination for shingles. He is noticed no rash. He can barely touch his skin because of the pain. Current severity is moderate to severe. He had to call the paramedics because the pain was so bad. He did fall 2 weeks ago but that is not the pain that he is experiencing tonight. Past Medical History - Allergies and Home Meds Allergies/Adverse Reactions: Allergies No Known Allergies Allergy (Verified 11/15/18 04:20) Primary Care Physician: Pedro Gonzalez MD [Primary Care Provider] - Prior records reviewed: Yes Past Medical History: - - Pancreatitis, debility, anxiety, BPH, stroke, depression, diverticulosis, GERD, hypothyroid, normal pressure hydrocephalus, kidney stone Surgical History: - - Partial duodenum resection, cholecystectomy Lives: Spouse/ Significant Other Smoking Status: Never smoker Alcohol: None Drugs: None - Family History Maternal Family History: Reports: Heart Disease Review of Systems General: Denies: Chills, Fever, Sweats Eyes: Denies: Visual changes - bilaterally, Diplopia ENT: Denies: Rhinorrhea, Sore throat Cardiovascular: Denies: Chest pain, Palpitations Respiratory: Denies: Dyspnea, Cough, Dyspnea on exertion Gastrointestinal: Denies: Abdominal pain, Nausea, Vomiting, Diarrhea, Melena, Hematochezia Genitourinary: Denies: Dysuria, Hematuria, Frequency Musculoskeletal: Reports: Back pain, - - Flank pain. Denies: Extremity Pain Skin: Denies: Rash, Wounds Neurological: Denies: Headache, Weakness, Numbness Physical Exam Vital Signs/Narrative: Vital Signs Temp Pulse Resp BP Pulse Ox 11/15/18 04:13 98.3 F 74 20 H 160/90 H 98 General: Well nourished, Well developed, No Acute Distress Head: Normocephalic, Atraumatic Eyes: Perrl, EOMI ENT: Moist mucous membranes, No rhinorrhea Neck: Supple, Nontender Cardiovascular: Regular rate, Regular rhythm, No murmurs Respiratory: No distress, CTA bilaterally, Chest nontender Abdomen: Soft, Nondistended, Normal bowel sounds, Tender - Just to and right back in a dermatomal distribution touching the skin alone. No rash. Negative for: Nontender Back: Nontender, Normal Inspection Extremities: Nontender, No edema Skin: Normal color, No rash Neurological: Alert, Oriented x3, Cranial nerves II-XII grossly intact, Normal Strength. Negative for: Normal Sensation Psychological: Normal affect, Normal Mood Diagnostic/Tx/Re-eval - Medical Decision Making This time I feel the patient has shingles-like pain. He is having exquisite light touch sensitivity in a dermatomal distribution on his right flank back and abdomen. There is no rash at this time. I feel it is too early for the rash. He was given a dose of morphine for the pain. Lab work obtained. Lab work shows no significant abnormalities. Patient given acyclovir. Given another dose of morphine. At this time I do not think he has an acute emergent cause other than shingles. Discussed with the hospitalist. Due to the amount of pain he is having I feel he will need to be admitted. ED Disposition - Plan for ED Patient: Diagnosis: Herpes zoster Referrals: Pedro Gonzalez MD [Primary Care Provider] -
[2018-11-15] MEDS: Morphine 4 MG/ML Syringe IV ×2 (04:55→05:57)
[2018-11-15 04:59] LABS: Absolute Neutrophil Count 3.5 X10^3/uL (2.0-7.7); Basophil# 0.02 X10^3/uL; Basophil% 0.3 % (0-1); Eosinophil# 0.13 X10^3/uL; Eosinophils% 1.9 % (0-5); Hematocrit 49.2 % (40-54); Hemoglobin 15.9 g/dl (13.0-16.5); Lymphocyte % 32.9 % (19-41); Mean Corp Hgb Conc 32.3 g/gl (32-36); Mean Corpuscular Hgb 29.8 pg (27.0-32.0); Mean Corpuscular Volume 92.3 fL (80-94); Mean Platelet Vol. 8.9 fl (6.2-12.0); Monocyte# 0.82 X10^3/uL; Monocyte% 12.3 % (0-10); Neutrophil % 52.5 % (47-70); Platelet Count 201 K/mm3 (150-450); RBC Distribution Width CV 12.7 % (11.6-14.6); RBC Distribution Width SD 42.5 fl (35.1-43.9); Red Blood Count 5.33 M/mm3 (4.6-6.2); White Blood Count 6.7 K/mm3 (4.4-11.0)
[2018-11-15 05:04] LABS: POSITIVE COUNT NO; POSITIVE DIFFERENTIAL NO; POSITIVE MORPHOLOGY NO
[2018-11-15 05:09] LABS: Anion Gap 7 (5-15); BUN 13 mg/dL (7-18); BUN/Creat Ratio 10.7 RATIO (10-20); Calcium,Total 8.4 mg/dL (8.5-10.1); Chloride 109 mmol/L (98-107); Creatinine, Serum 1.22 mg/dL (0.70-1.30); EST Glomerular Filtration Rate 61 mL/min (>60); Est Glom Filt Rate - Afr Amer 74 mL/min (>60); Estimated Creatinine Clearance 49.06 ml/min; Glucose 113 mg/dL (74-106); Potassium 3.6 mmol/L (3.5-5.1); Sodium Level 143 mmol/L (136-145)
--- NOTE | 2018-11-15 06:00 | PCM.HP.STD ---
Problem List (1) Shingles outbreak Status: Acute Qualifiers: Herpes zoster complications: unspecified herpes zoster complication Qualified Code(s): B02.8 - Zoster with other complications (2) Intractable pain Status: Acute (3) History of CVA (cerebrovascular accident) Status: Chronic (4) Anxiety and depression Status: Chronic (5) GERD (gastroesophageal reflux disease) Status: Chronic Qualifiers: Esophagitis presence: esophagitis presence not specified Qualified Code(s): K21.9 - Gastro-esophageal reflux disease without esophagitis (6) Hypothyroidism Status: Chronic Qualifiers: Hypothyroidism type: unspecified Qualified Code(s): E03.9 - Hypothyroidism, unspecified (7) VTE (venous thromboembolism) Status: Chronic (8) BPH (benign prostatic hyperplasia) Status: Chronic Qualifiers: Lower urinary tract symptom presence: unspecified whether lower urinary tract symptoms present Qualified Code(s): N40.0 - Benign prostatic hyperplasia without lower urinary tract symptoms (9) NPH (normal pressure hydrocephalus) Status: Chronic History of Present Illness Date of Admission: 11/15/18 Chief Complaint: Intractable R flank pain The patient is a 78 y/o M w/ PMHx: Obesity, GERD, Hypothyroidism, Hx CVA, Depression and Anxiety, BPH, NPH, History of VTE who presents to the [facility] ED on 11/15/18 with history of onset over the last 48 hours right-sided flank pain, severe, 10 out of 10 in nature, burning sensation, progressively worsening, unable to even touch the skin and severe discomfort when he touches with no overt rash apparent. He notes discomfort with even placing a shirt on. Patient noted a history of having had chickenpox history. He is unsure if he had shingles vaccination. Work-up in the ED included T 98.3, heart rate 74, BP 160/90, respiratory rate 20, 98% on room air, unremarkable CBC, BMP not market appearing. In the ED patient administered Zovirax, morphine. Past Medical History Past Medical History (Chronic Problems): Chronic Problems (Last Updated 04/07/18 @ 14:37 by Pedro Oneill DO) History of CVA (cerebrovascular accident) (Chronic) Anxiety and depression (Chronic) GERD (gastroesophageal reflux disease) (Chronic) Hypothyroidism (Chronic) VTE (venous thromboembolism) (Chronic) BPH (benign prostatic hyperplasia) (Chronic) NPH (normal pressure hydrocephalus) (Chronic) Medical History: Medical History (Last Updated 04/07/18 @ 14:37 by Pedro Oneill DO) Anxiety F41.9 BPH (benign prostatic hyperplasia) N40.0 CVA (cerebral vascular accident) I63.9 Depression F32.9 Diverticulosis K57.90 GERD (gastroesophageal reflux disease) K21.9 Hemorrhoid K64.9 Hypothyroid E03.9 NPH (normal pressure hydrocephalus) G91.2 Urinary calculi N20.9 VTE (venous thromboembolism) I82.90 Allergies No Known Allergies Allergy (Verified 11/15/18 04:20) Home Medications: Ambulatory Orders Medication Instructions Recorded Cholecalciferol (VIT D3) [Vitamin 5,000 unit PO DAILY 08/06/14 D3] Esomeprazole Mag Trihydrate 40 mg PO DAILY 10/14/16 [Nexium] Finasteride [Proscar] 5 mg PO DAILY 10/14/16 Levothyroxine [Synthroid] 75 mcg PO MOTUWETHFRSA 10/14/16 Magnesium 400 mg PO DAILY 10/14/16 Tamsulosin HCl [Flomax] 0.4 mg PO DAILY 10/14/16 L.acidoph,Paracasei, B.lactis 1 each PO DAILY 05/24/17 [Probiotic] Rivaroxaban [Xarelto] 20 mg PO DAILY 05/24/17 Vitamin B Complex 1 each PO DAILY 05/24/17 buPROPion XL [Wellbutrin Xl] 300 mg PO DAILY 05/24/17 B-Complex with Vitamin C [Super B 1 each PO DAILY 11/15/18 Complex-Vitamin C] Surgical History: Surgical History (Last Updated 04/07/18 @ 14:39 by Pedro Oneill DO) Hx of resection of small bowel Z90.49 removal of part of duodenum. S/P cholecystectomy Z90.49 Surgical History: - - Partial duodenum resection secondary to precancerous mass, cholecystectomy, tonsillectomy, partial thyroidectomy, sinus surgery, left inguinal hernia repair. Psychiatric History: Anxiety, Depression Lives: Spouse/ Significant Other Smoking Status: Never smoker Alcohol: None Drugs: None - *Family History Maternal History Items: Heart Disease - Mother with history of CHF. Paternal History Items: Cancer - Father with history of melanoma. Review of Systems Constitutional: Reports: Malaise, Weakness, Fatigue. Denies: Chills, Fever, Weight Change HEENT: Denies: Head Aches, Sinus Congestion, Sinus Drainage Cardiovascular: Reports: Chest Pain. Denies: Palpitations Respiratory: Denies: Cough, Shortness of breath at rest, Sputum production Gastrointestinal: Reports: Abdominal Pain. Denies: Nausea, Vomiting Genitourinary: Denies: Dysuria Musculoskeletal: Denies: Joint Pain, Joint Tenderness Skin: Denies: Rash, Wounds Neurological: Reports: Balance problems, Tingling. Denies: Focal weakness, Numbness Psychiatric: Reports: Anxiety, Depression. Denies: Homicidal Ideations, Suicidal Ideations Hematologic/ Lymphatic: Reports: Easy Bruising, Easy Bleeding VTE Information - Inpt Only VTE Present on Admission: No VTE Mechan Device Prophylaxis: SCD's VTE Pharm Prophylaxis ordered?: No Reason prophylaxis not ordered:: Treatment Not Indicated - Patient on Xarelto regimen for history VTE. Patient Problems: Active and Suspected Problems (Last Updated 04/07/18 @ 14:37 by Pedro Oneill DO) Shingles outbreak (Acute) Intractable pain (Acute) Subjective: Laying in ED bed, difficulty with movement secondary to discomfort elicited. Objective: Physical Examination: General: awake, alert, oriented x 3 and cooperative, laying in the ED bed, extremely uncomfortable appearing, worsened with movement touch. Skin: normal color, turgor, no icterus, cyanosis, right flank and right lateral abdominal region with severe pain with simple gentle touch, no obvious lesions or rash. HEENT: AT/NC, EOMI, PERRLA, very dry MM, no carotid bruits or JVD noted. Lungs: CTA bilaterally, moderate effort, mild decrease BL bases, no rales, ronchi or wheezing. Heart: Regular rate and rhythm; no gallop, rub audible. Abdomen: soft, see skin, severe discomfort palpation of the right lateral abdomen and upper chest, even with gentle skin touch, ND, normal BS, no HSM. Extremities: no cyanosis, clubbing, or edema. Neurological: patient awake, alert, oriented x 3; cognitive function intact; pupils equally reactive to light and accomodation; cranial nerves II-XII grossly normal, moving all 4 extremities, no focal deficits, strength severely global degree secondary to acute presentation. Psychiatric: affect appears fatigued and severely uncomfortable, no acute evidence of depressive or anxiety feelings. - Physical Exam Vital Signs Temp Pulse Resp BP Pulse Ox 98.3 F 74 20 H 160/90 H 98 11/15/18 04:13 11/15/18 04:13 11/15/18 04:13 11/15/18 04:13 11/15/18 04:13 Oxygen Delivery Method Room Air Weight: 200 lb Body Mass Index (BMI) 30.4 Laboratory Tests Past 24 Hrs 11/15/18 11/15/18 04:50 04:50 WBC 6.7 RBC 5.33 Hgb 15.9 Hct 49.2 MCV 92.3 MCH 29.8 MCHC 32.3 RDW 12.7 RDW Differential 42.5 Plt Count 201 MPV 8.9 Immature Gran % (Auto) 0.100 Neut % (Auto) 52.5 Lymph % (Auto) 32.9 [place] % (Auto) 12.3 H Eos % (Auto) 1.9 Baso % (Auto) 0.3 Absolute Neuts (auto) 3.5 Absolute Lymphs (auto) 2.20 Total Counted Not Reportable Sodium 143 Potassium 3.6 Chloride 109 H Carbon Dioxide 27.0 Anion Gap 7 BUN 13 Creatinine 1.22 Estim Creat Clear Calc 49.06 Est GFR (MDRD) Af Amer 74 Est GFR (MDRD) Non-Af 61 BUN/Creatinine Ratio 10.7 Glucose 113 H Calcium 8.4 L Assessment/Plan All Active Problems (Last Updated 04/07/18 @ 14:37 by Pedro Oneill DO) Pancreatitis (Acute) Debility (Acute) Shingles outbreak (Acute) Intractable pain (Acute) The patient is a 78 y/o M w/ PMHx: Obesity, GERD, Hypothyroidism, Hx CVA, Depression and Anxiety, BPH, NPH, History of VTE who presents to the [facility] ED on 11/15/18 with history of onset over the last 48 hours right-sided flank pain, severe, 10 out of 10 in nature, burning sensation, progressively worsening, unable to even touch the skin and severe discomfort when he touches with no overt rash apparent. (1) Intractable R Flank Pain suspected secondary to Acute Herpes Zoster Infection: In severity of intractable pain, will admit patient to medical surgical floor, initiate intravenous acyclovir therapy, maintain patient on precautions, initiate low-dose gabapentin, continue low-dose steroid regimen, administer low dose Toradol every 8 hours x5, PRN oral and IV narcotic therapy for breakthrough. (2) Elevated BP without hypertensive diagnosis: ED blood pressure notably elevated, possibly secondary to acute pain, we will continue to monitor and add oral regimen if appropriate, PRN IV hydralazine. 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 Maintain patient on ASA, not on BP regimen, not on statin regimen. (4) Anxiety and depression: Continue home Wellbutrin regimen. (5) BPH: Continue home Flomax and Proscar regimen. (6) Hypothyroidism: Continue home synthroid regimen. (7) History of VTE: Maintained on home xarelto regimen. (8) Obesity: Weight loss and lifestyle changes encouraged. (9) GERD: PPI. (10) DVT Prophylaxis: SCDs, Xarelto. (11) CODE status: DNR-CCA, no intubation status. Patient is his healthcare power of assistant county attorney, living will in place. Code Visit Inpatient E&M: 19089 Init Hosp L3
[2018-11-15] MEDS: Acyclovir 800 MG Tablet PO ×4 (06:12→21:46)
[2018-11-15] MEDS: Gabapentin 100 MG Capsule PO (06:24)
--- NOTE | 2018-11-15 06:42 | NURSING ---
209 INTRACTABLE PAIN, RT FLANK, SHINGLES WHITE
[2018-11-15 07:11] VITALS: BMI 30.5
[2018-11-15 07:12] VITALS: BP 168/94; PULSE 82; RESP 18; TEMP 36.4; O2SAT 93
[2018-11-15 07:20] LABS: Magnesium 2.1 mg/dL (1.6-2.6)
[2018-11-15 07:22] VITALS: BMI 30.6
[2018-11-15] MEDS: Morphine 2 MG/ML Syringe IV (10:24)
[2018-11-15] MEDS: Ondansetron 4 MG/2 ML Vial IV ×2 (10:25→18:21)
--- NOTE | 2018-11-15 10:33 | CM.UR ---
RN CM Note: Per rounds with Dr. Valadez, anticipate pt will be dc'd this afternoon if pain is controlled[facility]A Rodrigues to notify. Stuart DSOUZAN RN ACM
[2018-11-15] MEDS: 0.9% Normal Saline 1,000 ML 100 ML IV ×2 (10:39→20:05)
[2018-11-15] MEDS: oxyCODONE 5 MG Tablet PO (12:47)
[2018-11-15] MEDS: Levothyroxine 75 MCG Tablet PO (12:47)
[2018-11-15] MEDS: predniSONE 20 MG Tablet 40 MG PO (12:47)
[2018-11-15] MEDS: buPROPion (XL) 300 MG TABLET.XL PO (12:48)
[2018-11-15 12:53] VITALS: BP 151/85; PULSE 97; RESP 16; TEMP 36.7; O2SAT 98
[2018-11-15] MEDS: Gabapentin 100 MG Capsule 300 MG PO (14:55)
[2018-11-15] MEDS: Ketorolac 15 MG/ML Vial IV ×2 (14:55→21:45)
[2018-11-15] MEDS: 0.9% NaCl Peripheral Flush Adult/Peds IV ×2 (14:58→21:46)
--- NOTE | 2018-11-15 18:39 | PCM.HOSP.N ---
Hospitalist Note She was seen and examined today, I talked at length with his who is in the room today also. I reiterated that if the patient was able to take oral meds and his pain was controlled, he could be discharged home on outpatient medications. Check with nursing later on this afternoon and the patient stated he did not want to be discharged home he wanted to wait until tomorrow and possibly go home tomorrow. I have increased the patient's gabapentin and changed him to OxyIR and discontinued his Vicodin. I also placed him on oral acyclovir. He will need reevaluation tomorrow, I believe he probably does have shingles but there is no evidence on his skin as of yet.
[2018-11-15] MEDS: Gabapentin 300 MG Capsule PO (19:22)
[2018-11-15] MEDS: Tamsulosin HCl 0.4 MG Capsule PO (19:22)
[2018-11-15] MEDS: Finasteride 5 MG Tablet PO (19:22)
[2018-11-15] MEDS: Rivaroxaban 20 MG Tablet PO (19:22)
[2018-11-15 19:53] VITALS: BP 135/82; PULSE 95; RESP 18; TEMP 36.4; O2SAT 96
[2018-11-16 02:54] VITALS: BP 140/80; PULSE 80; RESP 18; TEMP 36.6; O2SAT 97
[2018-11-16] MEDS: oxyCODONE 5 MG Tablet PO (04:15)
[2018-11-16] MEDS: 0.9% Normal Saline 1,000 ML 100 ML IV (06:31)
[2018-11-16] MEDS: Ondansetron 4 MG/2 ML Vial IV (06:31)
[2018-11-16] MEDS: Ketorolac 15 MG/ML Vial IV (06:31)
[2018-11-16] MEDS: Levothyroxine 75 MCG Tablet PO (06:32)
[2018-11-16] MEDS: Acyclovir 800 MG Tablet PO ×2 (06:32→08:56)
[2018-11-16 06:57] LABS: Absolute Lymphocyte Count 1.25 X10^3/ul (0.83-4.51); Absolute Neutrophil Count 10.3 X10^3/uL (2.0-7.7); Basophil# 0.01 X10^3/uL; Basophil% 0.1 % (0-1); Hematocrit 45.8 % (40-54); Hemoglobin 14.6 g/dl (13.0-16.5); Lymphocyte # 1.25 X10^3/ul (4.0); Mean Corp Hgb Conc 31.9 g/gl (32-36); Mean Corpuscular Hgb 30.2 pg (27.0-32.0); Mean Corpuscular Volume 94.6 fL (80-94); Mean Platelet Vol. 9.1 fl (6.2-12.0); Monocyte# 0.99 X10^3/uL; Monocyte% 7.9 % (0-10); Neutrophil # 10.28 X10^3/uL (2.7-7.7); Neutrophil % 81.8 % (47-70); Platelet Count 204 K/mm3 (150-450); RBC Distribution Width CV 12.4 % (11.6-14.6); RBC Distribution Width SD 42.2 fl (35.1-43.9); Red Blood Count 4.84 M/mm3 (4.6-6.2); White Blood Count 12.6 K/mm3 (4.4-11.0)
[2018-11-16 07:00] LABS: POSITIVE COUNT NO; POSITIVE DIFFERENTIAL NO; POSITIVE MORPHOLOGY NO
[2018-11-16 07:15] VITALS: O2SAT 95
[2018-11-16 08:11] LABS: Anion Gap 5 (5-15); BUN 18 mg/dL (7-18); BUN/Creat Ratio 15.9 RATIO (10-20); Calcium,Total 8.2 mg/dL (8.5-10.1); Chloride 108 mmol/L (98-107); Creatinine, Serum 1.13 mg/dL (0.70-1.30); EST Glomerular Filtration Rate 67 mL/min (>60); Est Glom Filt Rate - Afr Amer 81 mL/min (>60); Estimated Creatinine Clearance 52.96 ml/min; Glucose 140 mg/dL (74-106); Potassium 4.6 mmol/L (3.5-5.1); Sodium Level 139 mmol/L (136-145)
[2018-11-16] MEDS: buPROPion (XL) 300 MG TABLET.XL PO (08:56)
[2018-11-16] MEDS: Gabapentin 300 MG Capsule PO (08:57)
[2018-11-16 09:00] VITALS: BP 148/91; PULSE 83; RESP 18; TEMP 36.6; O2SAT 97
--- NOTE | 2018-11-16 09:16 | PCM.DC ---
- Discharge Diagnoses Current Active Problems: Current Active and Chronic Problems (Last Updated 04/07/18 @ 14:37 by Pedro Oneill DO) Shingles outbreak (Acute) Intractable pain (Acute) History of CVA (cerebrovascular accident) (Chronic) Anxiety and depression (Chronic) GERD (gastroesophageal reflux disease) (Chronic) Hypothyroidism (Chronic) VTE (venous thromboembolism) (Chronic) BPH (benign prostatic hyperplasia) (Chronic) NPH (normal pressure hydrocephalus) (Chronic) Herpes zoster (Acute) Reason(s) for Visit for Discharge Instructions: Right flank pain You will use the following diet at home:: Regular Your food should be the consistency of: Regular Your liquids should be the consistency of: Regular/Thin Discharge Activity: Return to Normal Activity Weight Bearing Status: Weight bearing as tolerated Additional Instructions: Continue to take all your medications a prescribed. Follow-up with your primary care physician within 1-2 weeks. Continue to use your walker to ambulate. Allergies/Adverse Reactions: Allergies No Known Allergies Allergy (Verified 11/15/18 04:20) Medications to take at Discharge Cholecalciferol (VIT D3) [Vitamin D3] 5,000 unit PO DAILY 08/06/14 Esomeprazole Mag Trihydrate [Nexium] 40 mg PO DAILY 10/14/16 Finasteride [Proscar] 5 mg PO DAILY 10/14/16 Levothyroxine [Synthroid] 75 mcg PO MOTUWETHFRSA 10/14/16 Magnesium 400 mg PO DAILY 10/14/16 Tamsulosin HCl [Flomax] 0.4 mg PO DAILY 10/14/16 L.acidoph,Paracasei, B.lactis [Probiotic] 1 each PO DAILY 05/24/17 Rivaroxaban [Xarelto] 20 mg PO DAILY 05/24/17 Vitamin B Complex 1 each PO DAILY 05/24/17 buPROPion XL [Wellbutrin Xl] 300 mg PO DAILY 05/24/17 B-Complex with Vitamin C [Super B Complex-Vitamin C] 1 each PO DAILY 11/15/18 Acetaminophen [Tylenol Tablet] 650 mg PO Q6H PRN PRN tablet 11/16/18 Gabapentin [Neurontin] 300 mg PO TIDCM #90 capsule 11/16/18 Oxycodone [Oxyir] 5 mg PO Q4H PRN PRN 5 Days #20 tablet 11/16/18 Valacyclovir HCl [Valacyclovir] 1,000 mg PO TID #18 tablet 11/16/18 The following prescriptions were given: Oxycodone [Oxyir] 5 mg PO Q4H PRN PRN 5 Days #20 tablet PRN Reason: Pain Gabapentin [Neurontin] 300 mg PO TIDCM #90 capsule Valacyclovir HCl [Valacyclovir] 1,000 mg PO TID #18 tablet Primary Care Physician: Pedro Gonzalez MD [Primary Care Provider] - Please follow up with your Primary Care Physician in: within 1-2 weeks Test Results: Test results from this visit will be discussed in further detail at your follow-up appointment, if applicable. Proposed Discharge Date: 11/16/18
--- NOTE | 2018-11-16 09:21 | DCINST_ITS ---
- Discharge Diagnoses Current Active Problems: Current Active and Chronic Problems (Last Updated 04/07/18 @ 14:37 by Pedro Oneill DO) Shingles outbreak (Acute) Intractable pain (Acute) History of CVA (cerebrovascular accident) (Chronic) Anxiety and depression (Chronic) GERD (gastroesophageal reflux disease) (Chronic) Hypothyroidism (Chronic) VTE (venous thromboembolism) (Chronic) BPH (benign prostatic hyperplasia) (Chronic) NPH (normal pressure hydrocephalus) (Chronic) Herpes zoster (Acute) Reason(s) for Visit for Discharge Instructions: Right flank pain You will use the following diet at home:: Regular Your food should be the consistency of: Regular Your liquids should be the consistency of: Regular/Thin Discharge Activity: Return to Normal Activity Weight Bearing Status: Weight bearing as tolerated Additional Instructions: Continue to take all your medications a prescribed. Follow-up with your primary care physician within 1-2 weeks. Continue to use yo ur walker to ambulate. Allergies/Adverse Reactions: Allergies No Known Allergies Allergy (Verified 11/15/18 04:20) Medications to take at Discharge Cholecalciferol (VIT D3) [Vitamin D3] 5,000 unit PO DAILY 08/06/14 Esomeprazole Mag Trihydrate [Nexium] 40 mg PO DAILY 10/14/16 Finasteride [Proscar] 5 mg PO DAILY 10/14/16 Levothyroxine [Synthroid] 75 mcg PO MOTUWETHFRSA 10/14/16 Magnesium 400 mg PO DAILY 10/14/16 Tamsulosin HCl [Flomax] 0.4 mg PO DAILY 10/14/16 L.acidoph,Paracasei, B.lactis [Probiotic] 1 each PO DAILY 05/24/17 Rivaroxaban [Xarelto] 20 mg PO DAILY 05/24/17 Vitamin B Complex 1 each PO DAILY 05/24/17 buPROPion XL [Wellbutrin Xl] 300 mg PO DAILY 05/24/17 B-Complex with Vitamin C [Super B Complex-Vitamin C] 1 each PO DAILY 11/15/18 Acetaminophen [Tylenol Tablet] 650 mg PO Q6H PRN PRN tablet 11/16/18 Gabapentin [Neurontin] 300 mg PO TIDCM #90 capsule 11/16/18 Oxycodone [Oxyir] 5 mg PO Q4H PRN PRN 5 Days #20 tablet 11/16/18 Valacyclovir HCl [Valacyclovir] 1,000 mg PO TID #18 tablet 11/16/18 The following prescriptions were given: Oxycodone [Oxyir] 5 mg PO Q4H PRN PRN 5 Days #20 tablet PRN Reason: Pain Gabapentin [Neurontin] 300 mg PO TIDCM #90 capsule Valacyclovir HCl [Valacyclovir] 1,000 mg PO TID #18 tablet Primary Care Physician: Pedro Gonzalez MD [Primary Care Provider] - Please follow up with your Primary Care Physician in: within 1-2 weeks Test Results: Test results from this visit will be discussed in further detail at your follow- up appointment, if applicable. Proposed Discharge Date: 11/16/18
--- NOTE | 2018-11-16 12:00 | DS.PCM_ITS ---
Discharge Date and Diagnosis Date of Admission: 11/15/18 Date of Discharge: 11/16/18 - Primary Discharge Diagnosis Intractable right flank pain Possible shingles - Secondary Discharge Diagnosis Chronic Problems (Last Updated 04/07/18 @ 14:37 by Pedro Oneill DO) History of CVA (cerebrovascular accident) (Chronic) Anxiety and depression (Chronic) GERD (gastroesophageal reflux disease) (Chronic) Hypothyroidism (Chronic) VTE (venous thromboembolism) (Chronic) BPH (benign prostatic hyperplasia) (Chronic) NPH (normal pressure hydrocephalus) (Chronic) Hospital Course and Treatment None Operations: None Procedures: None Summary of Care Provided: The patient is a 78 year old M with multiple comorbidities significant for history of CVA, hypothyroidism, who fell 2 weeks prior to admission comes in with sudden onset of right flank pain, described initially as burning, progressive. Patient was admitted for pain control. He was felt clinically to have acute herpes zoster infection even though there were no rash seen. Patient was started on acyclovir, gabapentin, Toradol with improvement in his pain. Patient was discharged to complete a week of valacyclovir. He needs to follow- up with his primary care doctor within 1-2 weeks. Subjective: On the day of discharge, pain patient states his pain is much better. Denied any fever or chills. Ambulates with a walker. Seen by PT and OT. - Physical Exam General: Alert, Oriented x3, Cooperative, No apparent distress HEENT: Atraumatic, PERRLA, EOMI, Normocephalic Oral: Moist Mucosa Neck: Supple Lungs: Clear to auscultation, Normal air movement Cardiovascular: Regular rate, Regular Rhythm, Normal S1, Normal S2, No murmurs Abdomen: Bowel Sounds Present, Soft, Non Tender, Non-Distended, No Hepato- splenomegaly Extremities: No edema Skin: - - No erythema or rash seen around the right flank region suggestive of shingles. Musculoskeletal: No Tenderness to Palpation of Joints or Extremities Lymphatic: No Cervical, Supraclavicular, or Inguinal Adenopathy Neurological: Cranial nerves II-XII grossly intact, Neuro grossly intact Psych/Mental Status: Normal Affect, Appropriate Vital Signs Temp Pulse Resp BP Pulse Ox 97.8 F 83 18 148/91 H 97 11/16/18 09:00 11/16/18 09:00 11/16/18 09:00 11/16/18 09:00 11/16/18 09:00 Oxygen Delivery Method Room Air Weight: 91.2 kg Body Mass Index (BMI) 30.5 Intake and Output for Last 24 Hours 11/14/18 11/15/18 11/16/18 23:59 23:59 23:59 Intake Total 1074 / 1074 1314 / 1314 Output Total 200 / 200 225 / 225 Balance 874 / 874 1089 / 1089 Laboratory Tests Past 24 Hrs 11/16/18 11/16/18 06:21 06:21 WBC 12.6 H RBC 4.84 Hgb 14.6 Hct 45.8 MCV 94.6 H MCH 30.2 MCHC 31.9 L RDW 12.4 RDW Differential 42.2 Plt Count 204 MPV 9.1 Immature Gran % (Auto) 0.200 Neut % (Auto) 81.8 H Lymph % (Auto) 10.0 L [place] % (Auto) 7.9 Eos % (Auto) 0.0 Baso % (Auto) 0.1 Absolute Neuts (auto) 10.3 H Absolute Lymphs (auto) 1.25 Total Counted Not Reportable Sodium 139 Potassium 4.6 Chloride 108 H Carbon Dioxide 26.0 Anion Gap 5 BUN 18 Creatinine 1.13 Estim Creat Clear Calc 52.96 Est GFR (MDRD) Af Amer 81 Est GFR (MDRD) Non-Af 67 BUN/Creatinine Ratio 15.9 Glucose 140 H Calcium 8.2 L Discharge Diet: No Restrictions Discharge Activity: Return to Normal Activity Weight Bearing Status: Weight bearing as tolerated Home Medications: Medications to take at Discharge Cholecalciferol (VIT D3) [Vitamin D3] 5,000 unit PO DAILY 08/06/14 Esomeprazole Mag Trihydrate [Nexium] 40 mg PO DAILY 10/14/16 Finasteride [Proscar] 5 mg PO DAILY 10/14/16 Levothyroxine [Synthroid] 75 mcg PO MOTUWETHFRSA 10/14/16 Magnesium 400 mg PO DAILY 10/14/16 Tamsulosin HCl [Flomax] 0.4 mg PO DAILY 10/14/16 L.acidoph,Paracasei, B.lactis [Probiotic] 1 each PO DAILY 05/24/17 Rivaroxaban [Xarelto] 20 mg PO DAILY 05/24/17 Vitamin B Complex 1 each PO DAILY 05/24/17 buPROPion XL [Wellbutrin Xl] 300 mg PO DAILY 05/24/17 B-Complex with Vitamin C [Super B Complex-Vitamin C] 1 each PO DAILY 11/15/18 Acetaminophen [Tylenol Tablet] 650 mg PO Q6H PRN PRN tablet 11/16/18 Gabapentin [Neurontin] 300 mg PO TIDCM #90 capsule 11/16/18 Oxycodone [Oxyir] 5 mg PO Q4H PRN PRN 5 Days #20 tablet 11/16/18 Valacyclovir HCl [Valacyclovir] 1,000 mg PO TID #18 tablet 11/16/18 Following Prescrptions Were Given to Patient: Oxycodone [Oxyir] 5 mg PO Q4H PRN PRN 5 Days #20 tablet PRN Reason: Pain Gabapentin [Neurontin] 300 mg PO TIDCM #90 capsule Valacyclovir HCl [Valacyclovir] 1,000 mg PO TID #18 tablet Primary Care Physician: Pedro Gonzalez MD [Primary Care Provider] - Please follow up with your Primary Care Physician in: within 1-2 weeks Disposition: Home Minutes spent on discharge:: 40 Patient Condition:: Stable Medical Necessity - Tobacco Use Smoking Status: Never smoker Tobacco Use: Non-smoker Meaningful Use Info Meaningful Use Diagnoses (Choose all that apply): None applicable Code Visit Inpatient E&M: 34793 Disch Hosp
--- NOTE | 2018-11-18 15:52 | CASEMGMT ---
KIRA CM DC PHONE CALL DC DATE: 11/16/18 DC Disposition: Home LACE/STRATA: 05/06 Phone number connected to area business. Not correct. Stuart NeriN RN ACM
== END 2018-11-16 11:00 | disposition home or self-care (01) | DRG 596 ==
LOC: ED 04:50 → MS2 06:53
PROVIDERS: Admitting Provider Family Medicine; Emergency Provider Emergency Medicine; Family Provider Family Medicine; PCP Family Medicine; Visit Provider Internal Medicine
DX: B02.9 Zoster without complications (principal); G91.2 (Idiopathic) normal pressure hydrocephalus; N40.0 Benign prostatic hyperplasia without lower urinary tract symptoms; E03.9 Hypothyroidism, unspecified; Z66 Do not resuscitate; F32.9 Major depressive disorder, single episode, unspecified; F41.9 Anxiety disorder, unspecified; K21.9 Gastro-esophageal reflux disease without esophagitis; Z86.718 Personal history of other venous thrombosis and embolism; Z79.01 Long term (current) use of anticoagulants; I69.398 Other sequelae of cerebral infarction; Z79.82 Long term (current) use of aspirin; E66.9 Obesity, unspecified; Z68.30 Body mass index [BMI] 30.0-30.9, adult
CPT/HCPCS: 36415; 80048; 83735; 85025; 97116; 97162; 97165; 97530; 99285; J7030; A4216; J2405

== ENCOUNTER → 2019-05-28 | Outpatient (CLI) | payer MEDICARE, OTHER, SELFPAY ==
[2018-12-26 15:31] VITALS: BMI 31.3
[2019-05-28 12:28] LABS: Absolute Lymphocyte Count 1.96 X10^3/uL (0.83-4.51); Absolute Neutrophil Count 5.4 X10^3/uL (2.0-7.7); Basophil# 0.04 X10^3/uL; Basophil% 0.5 % (0-1); Eosinophil# 0.08 X10^3/uL; Hematocrit 49.1 % (40-54); Hemoglobin 15.7 g/dL (13.0-16.5); Lymphocyte # 1.96 X10^3/ul (4.0); Lymphocyte % 23.8 % (19-41); Mean Corpuscular Hgb 29.9 pg (27.0-32.0); Mean Corpuscular Volume 93.5 fL (80-94); Mean Platelet Vol. 9.3 fl (6.2-12.0); Monocyte# 0.69 X10^3/uL; Monocyte% 8.4 % (0-10); NRBC Flagged by Analyzer 0 % (0-5); Neutrophil # 5.42 X10^3/uL (2.7-7.7); Neutrophil % 65.9 % (47-70); Platelet Count 204 K/mm3 (150-450); RBC Distribution Width CV 11.9 % (11.6-14.6); RBC Distribution Width SD 41.3 fl (35.1-43.9); Red Blood Count 5.25 M/mm3 (4.6-6.2); White Blood Count 8.2 K/mm3 (4.4-11.0)
[2019-05-28 12:59] LABS: ALB/GLOB Ratio 0.9 RATIO (0.9-2.4); AST(SGOT) 18 U/L (15-37); Alanine Aminotransfer ALT/SGPT 31 U/L (16-61); Albumin, Serum 3.3 g/dL (3.2-5.0); Alkaline Phosphatase 104 U/L (45-117); Anion Gap 6 (5-15); BUN 10 mg/dL (7-18); BUN/Creat Ratio 9.8 RATIO (10-20); CRP < 2.90 mg/L (0.0-3.0); Calcium,Total 8.5 mg/dL (8.5-10.1); Chloride 106 mmol/L (98-107); Creatinine, Serum 1.02 mg/dL (0.70-1.30); EST Glomerular Filtration Rate 75 mL/min (>60); Est Glom Filt Rate - Afr Amer 91 mL/min (>60); Globulin 3.5 g/dL (2.2-4.2); Glucose 114 mg/dL (74-106); Lipase 34 U/L (73-393); Potassium 4.1 mmol/L (3.5-5.1); Protein, Total 6.8 g/dL (6.4-8.2); Sodium Level 142 mmol/L (136-145)
== END | disposition home or self-care (01) ==
LOC: MTLAB 10:52
PROVIDERS: Family Provider Family Medicine; PCP Family Medicine; Referring Provider Family Medicine; Visit Provider Family Medicine
DX: K52.9 Noninfective gastroenteritis and colitis, unspecified (principal)
CPT/HCPCS: 36415; 80053; 83690; 85025; 86140

== ENCOUNTER → 2019-08-29 06:49 | Outpatient (CLI) | payer MEDICARE, OTHER, SELFPAY ==
[2019-08-21 07:55] VITALS: BMI 30.5
--- NOTE | 2019-08-29 06:53 | CT_ITS ---
STUDY: CT ABDOMEN AND PELVIS WITH CONTRAST REASON FOR EXAM: Male, 79 years old. LOWER ABD PAIN, HX OF HERNIA REPAIR, COLON RESECTION, PITER RADIATION DOSAGE (If Supplied By Facility): CTDIvol = ( 14.76 ) mGy, DLP = ( 1107.33 ) mGycm TECHNIQUE: Transaxial images were obtained from the dome of the diaphragm to the symphysis pubis with oral contrast. 100mL Isovue-300 was administered. Sagittal and coronal images were reconstructed. Individualized dose optimization techniques were used for this CT. COMPARISON: None. FINDINGS: The visualized lung bases are unremarkable. The visualized portions of the heart are within normal limits. Normal liver. Normal gallbladder and extrahepatic biliary system. Normal spleen. There is diffuse atrophy of the pancreas. Normal bilateral adrenal glands. Normal right kidney. There is 1.2 cm cyst of the left kidney. Normal visualized stomach. Normal small intestine. Normal colon. The appendix is visualized and appears normal. Normal abdominal aorta. Normal inferior vena cava. Normal retroperitoneum. Normal urinary bladder. There are prostatic calcifications. Shunt catheter extends to the pelvis. There is mild free fluid. Normal abdominal wall. Normal osseous structures. CT/Abdomen/Pelvis WITH Contrast IMPRESSION: No obstruction. No hydronephrosis. Electronically Signed: Supa Goldsmith MD at 10:31 EST , Service support ,
[2019-08-29 08:16] LABS: CREATININE FINGERSTICK 0.9 mg/dL (0.70-1.30); EGFR FINGERSTICK > 60.0000 mL/min (>60)
== END ==
PROVIDERS: Family Provider Family Medicine; PCP Family Medicine; Referring Provider Surgery; Visit Provider Surgery
DX: R10.9 Unspecified abdominal pain (principal)
CPT/HCPCS: 74177; Q9967

== ENCOUNTER 2020-02-19 23:19 | Inpatient (IN) | payer MEDICARE, OTHER, SELFPAY ==
[2019-08-21 07:55] VITALS: BMI 30.5
[2020-02-19 23:20] VITALS: BP 166/85; PULSE 72; RESP 18; TEMP 36.9; O2SAT 98; BMI 30.1
[2020-02-20] VITALS (7 sets, daily range): BP systolic 122–162; BP diastolic 67–92; PULSE 68–84; RESP 16–18; TEMP 36.5–37.4; O2SAT 92–100; BMI 29.2
[2020-02-20 00:15] LABS: Bacteria 0 SEEN /hpf (None Seen); Mucous, Urine 0 SEEN /hpf (<or=2+); Red Blood Cells-Urine 0 SEEN /hpf (0-5); Squamous Epithelial Cells - UA 0 SEEN /hpf (0-5); White Blood Cells 0 SEEN /hpf (0-5)
[2020-02-20] MEDS: Ondansetron 4 MG/2 ML Vial IV ×2 (00:15→04:17)
[2020-02-20] MEDS: Morphine 4 MG/ML Syringe IV ×2 (00:15→04:17)
[2020-02-20 00:16] LABS: Color, Urine Yellow (Yellow); Glucose, Dipstick Normal (Normal); Ketone-Dipstick Negative (Negative); Leukocyte Esterase-Dipstick 100 /ul (Negative); Nitrite-Dipstick Negative (Negative); Occult Blood-Urine Negative /ul (Negative); Protein-Dipstick Negative (Negative); Specific Gravity, Urine 1.015 (1.002-1.030); Urine Bilirubin Dipstick Negative (Negative); Urine Clarity Clear (Clear); Urine Urobilinogen Normal (Normal)
[2020-02-20 00:18] LABS: Absolute Lymphocyte Count 2.71 X10^3/uL (0.83-4.51); Absolute Neutrophil Count 3.1 X10^3/uL (2.0-7.7); Basophil# 0.02 X10^3/uL; Basophil% 0.3 % (0-1); Eosinophil# 0.14 X10^3/uL; Eosinophils% 2.1 % (0-5); Hematocrit 48.1 % (40-54); Hemoglobin 15.8 g/dL (13.0-16.5); Lymphocyte # 2.71 X10^3/ul (4.0); Mean Corp Hgb Conc 32.8 g/dL (32-36); Mean Corpuscular Hgb 30.6 pg (27.0-32.0); Mean Platelet Vol. 9.3 fl (6.2-12.0); Monocyte# 0.77 X10^3/uL; Monocyte% 11.4 % (0-10); NRBC Flagged by Analyzer 0 % (0-5); Neutrophil # 3.13 X10^3/uL (2.7-7.7); Neutrophil % 46.1 % (47-70); Platelet Count 168 K/mm3 (150-450); RBC Distribution Width CV 12.4 % (11.6-14.6); RBC Distribution Width SD 42.7 fl (35.1-43.9); Red Blood Count 5.17 M/mm3 (4.6-6.2); White Blood Count 6.8 K/mm3 (4.4-11.0)
[2020-02-20 00:32] LABS: AST(SGOT) 24 U/L (15-37); Alanine Aminotransfer ALT/SGPT 36 U/L (16-61); Albumin, Serum 3.3 g/dL (3.2-5.0); Alkaline Phosphatase 115 U/L (45-117); Anion Gap 5 (5-15); BUN 11 mg/dL (7-18); BUN/Creat Ratio 9.4 RATIO (10-20); Calcium,Total 8.8 mg/dL (8.5-10.1); Chloride 108 mmol/L (98-107); Creatinine, Serum 1.17 mg/dL (0.70-1.30); EST Glomerular Filtration Rate 64 mL/min (>60); Est Glom Filt Rate - Afr Amer 77 mL/min (>60); Estimated Creatinine Clearance 49.53 ml/min; Globulin 3.3 g/dL (2.2-4.2); Glucose 123 mg/dL (74-106); Lipase 37 U/L (73-393); Potassium 3.9 mmol/L (3.5-5.1); Protein, Total 6.6 g/dL (6.4-8.2); Sodium Level 140 mmol/L (136-145)
--- NOTE | 2020-02-20 00:49 | CT_ITS ---
STUDY: CT ABDOMEN AND PELVIS WITHOUT CONTRAST REASON FOR EXAM: Male, 80 years old. RLQ PAIN TO RIGHT FLANK PAIN X 3 WEEKS RADIATION DOSAGE (If Supplied By Facility): CTDIvol = ( 14.685 ) mGy, DLP = ( 1056.93 ) mGycm TECHNIQUE: Transaxial 3.75 mm images were obtained from the dome of the diaphragm to the symphysis pubis without oral contrast, and without intravenous contrast. Sagittal and coronal images were reconstructed. This examination is limited for the evaluation of gastrointestinal, solid organs and vascular structures due to the lack of intravenous and oral contrast. Individualized dose optimization techniques were used for this CT. COMPARISON: CT abdomen and pelvis 08/29/2019. 04/07/2018. FINDINGS: Nonspecific compression of dependent parenchyma. The visualized portions of the heart are within normal limits. Percutaneous right lower anterior chest and upper abdominal ventriculostomy catheter coursing along the right colonic gutter into the pelvis. Normal liver. There are stable surgical clips in the gallbladder fossa consistent with a prior cholecystectomy and biliary ductal prominence. Stable accessory splenic tissue. Normal spleen. There is stable diffuse atrophy of the pancreas. Normal bilateral adrenal glands. Bilateral stable renal involution with cortical thinning. Left stable inferior renal pole exophytic cyst. There is no obstructive uropathy, obstructive renal or ureteral calculi. Normal visualized stomach. Normal small intestine. There are stable few sigmoid colonic diverticula consistent with diverticulosis. The appendix is visualized and appears normal. Normal abdominal aorta. Normal inferior vena cava. Normal retroperitoneum. Normal urinary bladder. There is stable enlargement and calcification of the prostate gland. Trace right pelvic fluid of 1 to 2 cc. Normal abdominal wall. There are diffuse degenerative changes of the visualized lumbar spine, osteopenia CT/Abdomen/Pelvis W IV Cont ONLY IMPRESSION: There is no appendicitis, hydronephrosis, colitis, ascites, abscess, collection, perforation or obstruction. Stable cholecystectomy, and a colostomy shunt, increased involution, renal involution, left renal cyst, few sigmoid diverticula, prostate enlargement and calcification and degenerative changes. Electronically Signed: Susan Contreras MD at 3:16 EDT , Service support ,
--- NOTE | 2020-02-20 01:02 | ED.DCSUM_ITS ---
History of Present Illness Chief Complaint: Flank Pain Informant: Patient, Family Narrative: Patient presents with right flank pain. He tells me is been present for 3 to 4 weeks however his tells me it is been present for 3 to 4 days. 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 He states it was uncomfortable for several weeks but today has gotten severely worse. He states he was laying in bed and began to jerk like he was falling out of bed and that is when his pain got severe. He notes it is worse with movement and touch. No diarrhea. No urinary symptoms or fevers. No rashes. No dyspnea. Patient is having extremely hard time trying to explain to me what he is feeling but what he does tell me repeatedly is that something is falling out of him in his right midaxillary mid abdomen. Past Medical History - Allergies and Home Meds Allergies/Adverse Reactions: Allergies No Known Allergies Allergy (Verified 02/19/20 23:23) Primary Care Physician: Pedro Gonzalez MD [Primary Care Provider] - Surgical History: - - Partial duodenum resection secondary to precancerous mass, cholecystectomy, tonsillectomy, partial thyroidectomy, sinus surgery, left inguinal hernia repair. Smoking Status: Never smoker - Family History Maternal Family History: Family History (Last Updated 08/21/19 @ 07:55 by Julia Vincent) Father Melanoma Mother Congestive heart failure Brother Skin cancer Family History: Reports: Heart Disease - Mother with history of CHF. Paternal Family History: Family History (Last Updated 08/21/19 @ 07:55 by Julia Vincent) Father Melanoma Mother Congestive heart failure Brother Skin cancer Family History: Reports: Cancer - Father with history of melanoma. Review of Systems General: Denies: Chills, Fever, Sweats Eyes: Denies: Visual changes - bilaterally, Diplopia ENT: Denies: Rhinorrhea, Sore throat Cardiovascular: Denies: Chest pain, Palpitations Respiratory: Denies: Dyspnea, Cough, Dyspnea on exertion Gastrointestinal: Reports: - - Right flank pain. Denies: Abdominal pain, Nausea, Vomiting, Diarrhea, Melena, Hematochezia Genitourinary: Denies: Dysuria, Hematuria, Frequency Musculoskeletal: Denies: Back pain, Extremity Pain Skin: Denies: Rash, Wounds Neurological: Denies: Headache, Weakness, Numbness Physical Exam Vital Signs/Narrative: Vital Signs Temp Pulse Resp BP Pulse Ox 02/19/20 23:20 98.5 F 72 18 166/85 H 98 Inital Vital Signs reviewed: Yes General: Well nourished, Well developed, No Acute Distress Head: Normocephalic, Atraumatic Eyes: Perrl, EOMI ENT: Moist mucous membranes, No rhinorrhea Neck: Supple, Nontender Cardiovascular: Regular rate, Regular rhythm, No murmurs Respiratory: No distress, CTA bilaterally, Chest nontender Abdomen: Soft, Nondistended, Normal bowel sounds, Tender - Is exquisitely tender on the lower mid axillary ribs. There is no ecchymosis or bruising. He is tender over the abdomen just inferior to the lower ribs. Positive CVA tenderness Back: Nontender, Normal Inspection Extremities: Nontender, No edema Skin: Normal color, No rash Neurological: Alert, Oriented x3, Cranial nerves II-XII grossly intact, Normal Strength, Normal Sensation Psychological: Normal affect, Normal Mood Diagnostic/Tx/Re-eval Clinical Impression(s) from Imaging Studies Abdomen/Pelvis CT 02/20/20 00:49 IMPRESSION: There is no appendicitis, hydronephrosis, colitis, ascites, abscess, collection, perforation or obstruction. Stable cholecystectomy, and a colostomy shunt, increased involution, renal involution, left renal cyst, few sigmoid diverticula, prostate enlargement and calcification and degenerative changes. Electronically Signed: Susan Contreras MD at 3:16 EDT , Service support , Laboratory Last Values WBC 6.8 K/mm3 (4.4-11.0) 02/19/20 23:50 RBC 5.17 M/mm3 (4.6-6.2) 02/19/20 23:50 Hgb 15.8 g/dL (13.0-16.5) 02/19/20 23:50 Hct 48.1 % (40-54) 02/19/20 23:50 MCV 93.0 fL (80-94) 02/19/20 23:50 MCH 30.6 pg (27.0-32.0) 02/19/20 23:50 MCHC 32.8 g/dL (32-36) 02/19/20 23:50 RDW Std Deviation 42.7 fl (35.1-43.9) 02/19/20 23:50 RDW Coeff of Chato 12.4 % (11.6-14.6) 02/19/20 23:50 Plt Count 168 K/mm3 (150-450) 02/19/20 23:50 MPV 9.3 fl (6.2-12.0) 02/19/20 23:50 Immature Gran % (Auto) 0.100 % (0.0-0.9) 02/19/20 23:50 Neut % (Auto) 46.1 % (47-70) L 02/19/20 23:50 Lymph % (Auto) 40.0 % (19-41) 02/19/20 23:50 [place] % (Auto) 11.4 % (0-10) H 02/19/20 23:50 Eos % (Auto) 2.1 % (0-5) 02/19/20 23:50 Baso % (Auto) 0.3 % (0-1) 02/19/20 23:50 Absolute Neuts (auto) 3.1 X10^3/uL (2.0-7.7) 02/19/20 23:50 Absolute Lymphs (auto) 2.71 X10^3/uL (0.83-4.51) 02/19/20 23:50 Nucleated RBC % 0 % (0-5) 02/19/20 23:50 Sodium 140 mmol/L (136-145) 02/19/20 23:50 Potassium 3.9 mmol/L (3.5-5.1) 02/19/20 23:50 Chloride 108 mmol/L (98-107) H 02/19/20 23:50 Carbon Dioxide 27.0 mmol/L (21.0-32.0) 02/19/20 23:50 Anion Gap 5 (5-15) 02/19/20 23:50 BUN 11 mg/dL (7-18) 02/19/20 23:50 Creatinine 1.17 mg/dL (0.70-1.30) 02/19/20 23:50 Estim Creat Clear Calc 49.53 ml/min 02/19/20 23:50 Est GFR (MDRD) Af Amer 77 mL/min (>60) 02/19/20 23:50 Est GFR (MDRD) Non-Af 64 mL/min (>60) 02/19/20 23:50 BUN/Creatinine Ratio 9.4 RATIO (10-20) L 02/19/20 23:50 Glucose 123 mg/dL (74-106) H 02/19/20 23:50 Calcium 8.8 mg/dL (8.5-10.1) 02/19/20 23:50 Total Bilirubin 0.40 mg/dL (0.20-1.00) 02/19/20 23:50 AST 24 U/L (15-37) 02/19/20 23:50 ALT 36 U/L (16-61) 02/19/20 23:50 Alkaline Phosphatase 115 U/L (45-117) 02/19/20 23:50 Total Protein 6.6 g/dL (6.4-8.2) 02/19/20 23:50 Albumin 3.3 g/dL (3.2-5.0) 02/19/20 23:50 Globulin 3.3 g/dL (2.2-4.2) 02/19/20 23:50 Albumin/Globulin Ratio 1.0 RATIO (0.9-2.4) 02/19/20 23:50 Lipase 37 U/L (73-393) L 02/19/20 23:50 Urine Color Yellow (Yellow) 02/20/20 00:08 Urine Clarity Clear (Clear) 02/20/20 00:08 Urine pH 8.0 (5.0 - 8.0) 02/20/20 00:08 Ur Specific [place] 1.015 (1.002-1.030) 02/20/20 00:08 Urine Protein Negative mg/dl (Negative) 02/20/20 00:08 Urine Glucose (UA) Normal mg/dl (Normal) 02/20/20 00:08 Urine Ketones Negative mg/dl (Negative) 02/20/20 00:08 Urine Occult Blood Negative /ul (Negative) 02/20/20 00:08 Urine Nitrite Negative (Negative) 02/20/20 00:08 Urine Bilirubin Negative mg/dL (Negative) 02/20/20 00:08 Urine Urobilinogen Normal mg/dl (Normal) 02/20/20 00:08 Ur Leukocyte Esterase 100 /ul (Negative) H 02/20/20 00:08 Urine RBC 0 SEEN /hpf (0-5) 02/20/20 00:08 Urine WBC 0 SEEN /hpf (0-5) 02/20/20 00:08 Ur Squamous Epith Cells 0 SEEN /hpf (0-5) 02/20/20 00:08 Urine Bacteria 0 SEEN /hpf (None Seen) 02/20/20 00:08 Urine Mucus 0 SEEN /hpf (<or=2+) 02/20/20 00:08 - Medical Decision Making Patient received morphine and Zofran. Basic labs were negative. After much debate about whether or not he could have a CT scan because of his WANT AD RECEIVER shunt patient consented. The CT was negative. Anytime the patient moves he screams to the point where I can hear him down the hallway. It sounds like abdominal oblique strain. I do not see a rash. He has been admitted for intractable pain due to shingles before. I do not see ecchymosis or bruising. I do not appreciate a hematoma or a hernia. Patient is physically unable to even roll in the bed without pain. Again asked our hospitalist if they will admit him. ED Disposition - Plan for ED Patient: Disposition: Acute Care Hospital [facility] Diagnosis: Abdominal muscle strain, Intractable pain Referrals: Pedro Gonzalez MD [Primary Care Provider] -
--- NOTE | 2020-02-20 03:46 | HP.PCM_ITS ---
Problem List (1) Abdominal muscle strain Status: Acute (2) Abdominal pain Status: Acute Qualifiers: Abdominal location: right lower quadrant Qualified Code(s): R10.31 - Right lower quadrant pain (3) Thyroid disorder Status: Chronic (4) Debility Status: Chronic (5) Intractable pain Status: Acute (6) History of CVA (cerebrovascular accident) Status: Chronic (7) Anxiety and depression Status: Chronic (8) GERD (gastroesophageal reflux disease) Status: Chronic Qualifiers: Esophagitis presence: esophagitis presence not specified Qualified Code(s): K21.9 - Gastro-esophageal reflux disease without esophagitis (9) Hypothyroidism Status: Chronic Qualifiers: Hypothyroidism type: unspecified Qualified Code(s): E03.9 - Hypothyroidism, unspecified (10) VTE (venous thromboembolism) Status: Chronic (11) BPH (benign prostatic hyperplasia) Status: Chronic Qualifiers: Lower urinary tract symptom presence: unspecified whether lower urinary tract symptoms present Qualified Code(s): N40.0 - Benign prostatic hyperplasia without lower urinary tract symptoms (12) NPH (normal pressure hydrocephalus) Status: Chronic History of Present Illness Date of Admission: 02/20/20 Chief Complaint: right flank pain The patient is a 80 year old M patient with a significant history of NPH status post DIETARY AIDE TEACHER shunt; herpes zoster: DVT; hypothyroidism; anxiety; depression and BPH who presents emergency department with right-sided flank pain. His pain radiates to his back. He describes his pain as sharp. His pain is so excruciating that he cannot sleep on his right side. His pain worsens with touch. His pain improved somewhat with pain medication given to him at emergency department. His pain is constant and with occasional sharp increase. While patient stated that his pain started about a week ago, his said that his pain started about 3 days ago.. Reportedly his pain started after an auxiliary seatbelt compressed his right side. Past Medical History Past Medical History (Chronic Problems): Chronic Problems (Last Reviewed 02/20/20 @ 05:[address] Santos Angeles MD) Thyroid disorder (Chronic) Debility (Chronic) History of CVA (cerebrovascular accident) (Chronic) Anxiety and depression (Chronic) GERD (gastroesophageal reflux disease) (Chronic) Hypothyroidism (Chronic) VTE (venous thromboembolism) (Chronic) BPH (benign prostatic hyperplasia) (Chronic) NPH (normal pressure hydrocephalus) (Chronic) Medical History: Medical History (Last Reviewed 02/20/20 @ 05:[address] Santos Angeles MD) Ventral incisional hernia without obstruction or gangrene (Inactive) K43.2 Abdominal pain (Acute) R10.9 Pancreatitis (Inactive) K85.90 Debility (Chronic) R53.81 Shingles outbreak (Inactive) B02.9 Intractable pain (Acute) R52 History of CVA (cerebrovascular accident) (Chronic) Z86.73 Anxiety and depression (Chronic) F41.9, F32.9 GERD (gastroesophageal reflux disease) (Chronic) K21.9 Hypothyroidism (Chronic) E03.9 VTE (venous thromboembolism) (Chronic) I82.90 BPH (benign prostatic hyperplasia) (Chronic) N40.0 NPH (normal pressure hydrocephalus) (Chronic) G91.2 Herpes zoster (Inactive) B02.9 Anxiety F41.9 BPH (benign prostatic hyperplasia) N40.0 CVA (cerebral vascular accident) I63.9 Depression F32.9 Diverticulosis K57.90 GERD (gastroesophageal reflux disease) K21.9 Hemorrhoid K64.9 Hydrocephalus G91.9 Hypothyroid E03.9 NPH (normal pressure hydrocephalus) G91.2 Urinary calculi N20.9 VTE (venous thromboembolism) I82.90 Allergies No Known Allergies Allergy (Verified 02/19/20 23:23) Home Medications: Ambulatory Orders Medication Instructions Recorded Cholecalciferol (VIT D3) [Vitamin 5,000 unit PO DAILY 08/06/14 D3] Finasteride [Proscar] 5 mg PO DAILY 10/14/16 Levothyroxine [Synthroid] 75 mcg PO MOTUWETHFRSA 10/14/16 Tamsulosin HCl [Flomax] 0.4 mg PO DAILY 10/14/16 Rivaroxaban [Xarelto] 20 mg PO DAILY 05/24/17 Vitamin B Complex 1 ea PO DAILY 05/24/17 buPROPion XL [Wellbutrin Xl] 300 mg PO DAILY 05/24/17 Juvencio Awilda Plus 1 tab PO DAILY 12/26/18 Melatonin 1 mg PO QHS 12/26/18 Magnesium 400 mg PO TID 08/21/19 ascorbic acid (vitamin C) 500 mg 500 mg PO DAILY 08/21/19 tablet calcium citrate 500 mg PO BID tab 08/21/19 esomeprazole magnesium 40 mg 20 mg PO DAILY cap 08/21/19 capsule,delayed release mirtazapine 15 mg tablet 15 mg PO DAILY 08/21/19 Surgical History: Surgical History (Last Reviewed 02/20/20 @ 05:[address] Santos Angeles MD) History insertion DIETARY AIDE TEACHER shunt History of left inguinal hernia repair Z98.890, Z87.19 History of partial thyroidectomy Z98.890 History of tonsillectomy Z90.89 Hx of resection of small bowel Z90.49 removal of part of duodenum. Hx of sinus surgery Z98.890 S/P cholecystectomy Z90.49 Surgical History: - - Partial duodenum resection secondary to precancerous mass, cholecystectomy, tonsillectomy, partial thyroidectomy, sinus surgery, left inguinal hernia repair. Psychiatric History: Anxiety, Depression Smoking Status: Never smoker - *Family History Maternal Family History: Family History (Last Reviewed 02/20/20 @ 05:[address] Santos Angeles MD) Father Melanoma Mother Congestive heart failure Brother Skin cancer History Items: Heart Disease - Mother with history of CHF. Paternal Family History: Family History (Last Reviewed 02/20/20 @ 05:[address] Santos Angeles MD) Father Melanoma Mother Congestive heart failure Brother Skin cancer History Items: Cancer - Father with history of melanoma. Review of Systems Constitutional: Denies: Chills, Fever, Weight Change HEENT: Denies: Head Aches, Sinus Congestion, Sinus Drainage Cardiovascular: Denies: Chest Pain, Palpitations Respiratory: Denies: Cough, Shortness of breath at rest, Sputum production Gastrointestinal: Reports: Abdominal Pain. Denies: Nausea, Vomiting Genitourinary: Denies: Dysuria Musculoskeletal: Denies: Joint Pain, Joint Tenderness Skin: Denies: Rash, Wounds Neurological: Denies: Numbness, Tingling, Focal weakness Psychiatric: Denies: Anxiety, Depression, Homicidal Ideations, Suicidal Ideations Hematologic/ Lymphatic: Denies: Easy Bruising, Easy Bleeding VTE Information - Inpt Only VTE Present on Admission: No VTE Mechan Device Prophylaxis: None VTE Pharm Prophylaxis ordered?: No Reason prophylaxis not ordered:: Treatment Not Indicated - Home Xarelto continued for history of DVT. Patient Problems: Active and Suspected Problems (Last Reviewed 02/20/20 @ 05:[address] Santos Angeles MD) Abdominal muscle strain (Acute) Intractable pain (Acute) - Physical Exam Vitals/I&O's: Vital Signs Temp Pulse Resp BP Pulse Ox 98.5 F 84 16 152/84 H 98 02/19/20 23:20 02/20/20 02:10 02/20/20 02:10 02/20/20 02:10 02/20/20 02:10 Oxygen Delivery Method Room Air Weight: 89.811 kg Body Mass Index (BMI) 30.1 General: Alert, Oriented x3, - - Patient in excruciating pain and screaming episodically. HEENT: Atraumatic, PERRLA, EOMI Neck: Supple, No JVD, Negative Carotid Bruits Lungs: Clear to auscultation, Normal air movement Cardiovascular: Regular rate, Normal S1, Normal S2, No murmurs Abdomen: Bowel Sounds Present, Soft, Tender Extremities: No edema, Capillary Refill Less than 3 Seconds Skin: No rashes, No breakdown Musculoskeletal: No Tenderness to Palpation of Joints or Extremities Neurological: Cranial nerves II-XII grossly intact Psych/Mental Status: Normal Affect, Appropriate Laboratory Results 02/19/20 23:50: WBC 6.8, RBC 5.17, Hgb 15.8, Hct 48.1, MCV 93.0, MCH 30.6, MCHC 32.8, RDW Std Deviation 42.7, RDW Coeff of Chato 12.4, Plt Count 168, MPV 9.3, Immature Gran % (Auto) 0.100, Neut % (Auto) 46.1 L, Lymph % (Auto) 40.0, [place] % (Auto) 11.4 H, Eos % (Auto) 2.1, Baso % (Auto) 0.3, Absolute Neuts (auto) 3.1, Absolute Lymphs (auto) 2.71, Nucleated RBC % 0 02/19/20 23:50: Sodium 140, Potassium 3.9, Chloride 108 H, Carbon Dioxide 27.0, Anion Gap 5, BUN 11, Creatinine 1.17, Estim Creat Clear Calc 49.53, Est GFR (MDRD) Af Amer 77, Est GFR (MDRD) Non-Af 64, BUN/Creatinine Ratio 9.4 L, Glucose 123 H, Calcium 8.8, Total Bilirubin 0.40, AST 24, ALT 36, Alkaline Phosphatase 115, Total Protein 6.6, Albumin 3.3, Globulin 3.3, Albumin/Globulin Ratio 1.0, Lipase 37 L 02/20/20 00:08: Urine Color Yellow, Urine Clarity Clear, Urine pH 8.0, Ur Specific [place] 1.015, Urine Protein Negative, Urine Glucose (UA) Normal, Urine Ketones Negative, Urine Occult Blood Negative, Urine Nitrite Negative, Urine Bilirubin Negative, Urine Urobilinogen Normal, Ur Leukocyte Esterase 100 H, Urine RBC 0 SEEN, Urine WBC 0 SEEN, Ur Squamous Epith Cells 0 SEEN, Urine Bacteria 0 SEEN, Urine Mucus 0 SEEN Assessment/Plan All Active Problems (Last Reviewed 02/20/20 @ 05:[address] Santos Angeles MD) Abdominal muscle strain (Acute) Abdominal pain (Acute) Intractable pain (Acute) The patient is a 80 year old M patient with a significant history of NPH status post DIETARY AIDE TEACHER shunt; herpes zoster: DVT; hypothyroidism; anxiety; depression and BPH who presents emergency department with right-sided flank pain that radiates to his back. Intractable pain. His pain appears to be cutaneous on his abdominal wall. Unclear whether is the beginning of shingles; or whether it is abdominal wall spasms. Of note patient has a history of shingles. Received morphine IV at the emergency department. Morphine IV PRN ordered. Scheduled Neurontin ordered. Bowel protocol and antiemetics in place DVT prophylaxis Not indicated since patient is Xarelto out of 4 history of DVT. OBSV E&M: 64226 Initial observation care L3
[2020-02-20] MEDS: Levothyroxine 75 MCG Tablet PO (06:19)
[2020-02-20] MEDS: Acetaminophen 325 MG Tablet 650 MG PO (06:20)
[2020-02-20] MEDS: Gabapentin 100 MG Capsule PO ×3 (06:20→17:24)
[2020-02-20] MEDS: Magnesium Oxide 400 MG Tablet PO ×3 (06:20→22:15)
[2020-02-20] MEDS: 0.9% Saline Lock 10 ML Syringe IV ×3 (07:17→15:08)
[2020-02-20] MEDS: Morphine 2 MG/ML Syringe IV ×2 (07:18→15:08)
[2020-02-20] MEDS: Senna/Docusate Sodium 1 Tablet 2 TABLET PO (10:56)
[2020-02-20] MEDS: Ascorbic Acid 500 MG Tablet PO (10:56)
[2020-02-20] MEDS: Calcium Carbonate 500 MG Tablet PO ×2 (10:57→22:15)
[2020-02-20] MEDS: Tamsulosin HCl 0.4 MG Capsule PO (10:57)
[2020-02-20] MEDS: Pantoprazole Sodium 20 MG Tablet PO (10:57)
[2020-02-20] MEDS: Finasteride 5 MG Tablet PO (10:58)
[2020-02-20] MEDS: Mirtazapine 15 MG Tablet PO (10:58)
[2020-02-20] MEDS: Rivaroxaban 20 MG Tablet PO (10:58)
[2020-02-20] MEDS: buPROPion (XL) 300 MG TABLET.XL PO (10:59)
[2020-02-20] MEDS: hydroCHLOROthiazide 12.5mg 12.5 MG PO (11:03)
[2020-02-20] MEDS: 0.9% Normal Saline 1,000 ML 50 ML IV (11:14)
[2020-02-20] MEDS: cycloBENZAPRine HCl 10 MG Tablet PO ×3 (11:16→22:15)
[2020-02-20] MEDS: Polyethylene Glycol 3350 17 GM PACKET PO (11:16)
--- NOTE | 2020-02-20 12:23 | CCHN_ITS ---
Hospitalist Note Seen and examined. 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 Summary 80-year-old gentleman with history of NPH status post CASH APPLICATIONS COORDINATOR shunt, herpes zoster in the past admitted with intractable right flank pain/lumbar area. On exam there is muscle tenderness, superficial around the right lumbar area. Patient had CT abdomen done in ER which shows no appendicitis, hydronephrosis, colitis, ascites, abscess, collection, perforation or obstruction. Bilateral stable renal involution with cortical thinning. No obstructive uropathy, obstructive renal or ureteral calculi. Impression: Clinically on examination it seems musculoskeletal right lumbar area pain. On pain medication and muscle relaxant. PT and OT possible discharge in 1 to 2 days. There is no vesicles/redness or rash observed to suggest reactivation of herpes zoster/shingles.
[2020-02-20] MEDS: oxyCODONE 5 MG Tablet PO (12:43)
--- NOTE | 2020-02-20 13:58 | CASEMGMT ---
Social Work Copy of pt living will found in EMR and printed and placed on chart. Pt HCPOA is not in EMR. SW notified pt who states he will ask to bring it in. Peggy listed on living will as first contact. JAMAAL Aguilar
--- NOTE | 2020-02-20 15:48 | CASEMGMT ---
KIRA DANIEL Face to Face with patient for initial transition planning/care coordination assessment. KIRA DANIEL introduced self and role at [facility]. Patient lying in bed, alert and oriented. Patient willing to participate in assessment and is able to answer all questions appropriately. Care providers, pharmacy, and demographics verified. Patient wishes to discharge home, and would like [facility] for [facility] therapy. Patient states he has no further needs or concerns at this time. CM to follow for discharge planning needs that may arise. PCP: Carlos Specialists: Neurologist [facility]erred [facility] Pres[facility] Benefit: yes Living Will/HPOA: yes, Peggy Massey LNOK: Living Arrangements: patient lives with in 1 story home with 1 step to enter the home. Patient states he was independent at home. Transportation: DME/HHC: Patient states he has shower chair, raised toilet, cane, walker, rollator, and grab bars. Patient requesting [facility] for therapy. Referral made to [facility] and they are able to accept the patient. KIRA DANIEL updated the patient Disposition Plan: Patient to discharge home with [facility], family support, and follow-up plans in place. Evonne JC, RN, CM
--- NOTE | 2020-02-20 16:18 | NURSING ---
Around noon today, This nurse had asked pt if he had voided any today b/c this nurse did not see him void. Pt states he voided 3-4times since 6am this morning. This nurse asked him if he went to the bathroom or used his urinal, Urinal is what was stated. So this nurse then asked the 3 Deli Associate's on the floor and none of them had emptied his urinal. This nurse bladder scanned pt around 1400 and scan showed 377, in which the pt felt urge to void so urinal was used. Mr. Massey voided 325ml at that time. This nurse re-bladder scanned pt for 76ml. Will continue to monitor.
[2020-02-21 03:41] VITALS: BP 112/55; PULSE 75; RESP 18; TEMP 36.6; O2SAT 95
[2020-02-21] MEDS: cycloBENZAPRine HCl 10 MG Tablet PO ×2 (05:12→13:54)
[2020-02-21] MEDS: Levothyroxine 75 MCG Tablet PO (05:12)
[2020-02-21] MEDS: Magnesium Oxide 400 MG Tablet PO ×2 (05:12→13:54)
[2020-02-21 07:21] LABS: Anion Gap 4 (5-15); BUN 13 mg/dL (7-18); BUN/Creat Ratio 11.6 RATIO (10-20); Calcium,Total 8.6 mg/dL (8.5-10.1); Chloride 103 mmol/L (98-107); Creatinine, Serum 1.12 mg/dL (0.70-1.30); EST Glomerular Filtration Rate 67 mL/min (>60); Est Glom Filt Rate - Afr Amer 81 mL/min (>60); Estimated Creatinine Clearance 51.74 ml/min; Glucose 114 mg/dL (74-106); Potassium 4.2 mmol/L (3.5-5.1); Sodium Level 138 mmol/L (136-145)
[2020-02-21 08:43] VITALS: O2SAT 95
[2020-02-21] MEDS: Ascorbic Acid 500 MG Tablet PO (09:39)
[2020-02-21] MEDS: Pantoprazole Sodium 20 MG Tablet PO (09:39)
[2020-02-21 09:40] VITALS: BP 129/64; PULSE 71; RESP 16; TEMP 36.7; O2SAT 97
[2020-02-21] MEDS: Calcium Carbonate 500 MG Tablet PO (09:40)
[2020-02-21] MEDS: Polyethylene Glycol 3350 17 GM PACKET PO (09:41)
[2020-02-21] MEDS: Finasteride 5 MG Tablet PO (09:41)
[2020-02-21] MEDS: Gabapentin 100 MG Capsule PO ×3 (09:42→18:21)
[2020-02-21] MEDS: Senna/Docusate Sodium 1 Tablet 2 TABLET PO (09:42)
[2020-02-21] MEDS: hydroCHLOROthiazide 12.5mg 12.5 MG PO (09:42)
[2020-02-21] MEDS: Tamsulosin HCl 0.4 MG Capsule PO (09:43)
[2020-02-21] MEDS: buPROPion (XL) 300 MG TABLET.XL PO (09:43)
[2020-02-21] MEDS: Mirtazapine 15 MG Tablet PO (09:43)
[2020-02-21] MEDS: Rivaroxaban 20 MG Tablet PO (09:43)
[2020-02-21] MEDS: oxyCODONE 5 MG Tablet PO ×2 (10:47→18:21)
--- NOTE | 2020-02-21 12:37 | RAD_ITS ---
STUDY: X-RAY - UNILATERAL RIBS ( RIGHT ) WITH CHEST REASON FOR EXAM: Male, 80 years old. right anterior lower rib pain x several weeks -- painful to breathe sometimes TECHNIQUE - RIBS: 4 view(s) of the ribs. TECHNIQUE - CHEST: Single AP portable view of the chest. COMPARISON: None. FINDINGS - RIBS: Normal visualized ribs without a demonstrated fracture. FINDINGS - CHEST: Chronic interstitial markings are present. There is no demonstrated pleural abnormality. Normal size heart. Normal mediastinum and carlos. Normal visualized pulmonary arteries. Normal visualized aortic arch and descending thoracic aorta. Normal visualized thoracic spine. Normal visualized ribs, clavicles, and shoulders. There is no demonstrated abnormality of the visualized soft tissue structures of the upper abdomen. RAD/Ribs Uni Min 3V w/PA Chest IMPRESSION: RIBS: No evidence of acute rib fracture. CHEST: No evidence of acute cardiopulmonary process. Electronically Signed: Rolan Nguyen DO at 16:45 EDT , Service support ,
--- NOTE | 2020-02-21 13:15 | NURSING ---
Down in Radiology at this time.
--- NOTE | 2020-02-21 14:47 | DCINST_ITS ---
- Discharge Diagnoses Current Active Problems: Current Active and Chronic Problems (Last Reviewed 02/20/20 @ 05:[address] Santos Angeles MD) Abdominal muscle strain (Acute) Intractable pain (Acute) You will use the following diet at home:: No restrictions Discharge Activity: Return to Normal Activity Call your doctor if you observe: Shortness of breath, Dizziness, Fainting spells, Chest pain Additional Instructions: Continue as needed tylenol and/or ibuprofen as needed for pain. Allergies/Adverse Reactions: Allergies No Known Allergies Allergy (Verified 02/19/20 23:23) Medications to take at Discharge Cholecalciferol (VIT D3) [Vitamin D3] 5,000 unit PO DAILY 08/06/14 Finasteride [Proscar] 5 mg PO DAILY 10/14/16 Levothyroxine [Synthroid] 75 mcg PO MOTUWETHFRSA 10/14/16 Tamsulosin HCl [Flomax] 0.4 mg PO DAILY 10/14/16 Rivaroxaban [Xarelto] 20 mg PO DAILY 05/24/17 Vitamin B Complex 1 ea PO DAILY 05/24/17 buPROPion XL [Wellbutrin Xl] 300 mg PO DAILY 05/24/17 Juvencio Awilda Plus 1 tab PO DAILY 12/26/18 Melatonin 1 mg PO QHS 12/26/18 Magnesium 400 mg PO TID 08/21/19 ascorbic acid (vitamin C) 500 mg tablet 500 mg PO DAILY 08/21/19 calcium citrate 500 mg PO BID tab 08/21/19 esomeprazole magnesium 40 mg capsule,delayed release 20 mg PO DAILY cap 08/21/19 mirtazapine 15 mg tablet 15 mg PO DAILY 08/21/19 Primary Care Physician: Pedro Gonzalez MD [Primary Care Provider] - Please follow up with your Primary Care Physician in: 1 Week Test Results: Test results from this visit will be discussed in further detail at your follow- up appointment, if applicable. Proposed Discharge Date: 02/21/20
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
--- NOTE | 2020-02-21 17:43 | NURSING ---
Spoke with Mr. Shirley via phone. Informed her of Xray of ribs were wnl and that order to go home tonight and how she felt about him going home. feels good with him coming home. She will stop at [facility] to get the Elavil for his pain. She is aware that he needs to follow up with his pcp in a week. Other questions answered. On the phone with approx 10 min. Radha Woodall [employer] aware that is okay with pt going home.
[2020-02-21 18:22] VITALS: BP 146/93; PULSE 91; RESP 18; TEMP 37.3; O2SAT 91
== END 2020-02-21 18:42 | disposition home health service (06) | DRG 563 ==
LOC: ED 02-20 04:04 → MS3 02-20 05:14
PROVIDERS: Internal Medicine; Admitting Provider Hospitalist; Emergency Provider Emergency Medicine; PCP Family Medicine; Visit Provider Family Medicine
DX: S39.011A Strain of muscle, fascia and tendon of abdomen, initial encounter (principal); G91.2 (Idiopathic) normal pressure hydrocephalus; W22.8XXA Striking against or struck by other objects, initial encounter; Y93.89 Activity, other specified; Y92.9 Unspecified place or not applicable; Z98.2 Presence of cerebrospinal fluid drainage device; E03.9 Hypothyroidism, unspecified; N40.0 Benign prostatic hyperplasia without lower urinary tract symptoms; F32.9 Major depressive disorder, single episode, unspecified; F41.9 Anxiety disorder, unspecified; K21.9 Gastro-esophageal reflux disease without esophagitis; B02.9 Zoster without complications
CPT/HCPCS: 36415; 71101; 74177; 80048; 80053; 81001; 83690; 85025; 97110; 97116; 97162; 97166; 97530; 97535; 99285; J7030; Q9967; A4216; J2405

== ENCOUNTER → 2020-10-06 09:42 | Outpatient (CLI) | payer MEDICARE, OTHER, SELFPAY ==
[2020-02-20 04:54] VITALS: BMI 29.2
--- NOTE | 2020-10-06 09:46 | ART_ITS ---
Reason For Study: PAD Procedure A bilateral lower extremity continuous wave Doppler with analog waveform analysis,segmental pressures,and ankle brachial indexes without exercise. Left Segmental Pressures Left brachial= 142mmHg. Left posterior tibial artery = 204mmHg. Left dorsalis pedis artery = 200mmHg. Left digit = 112 mmHg. Right Segmental Pressures Right brachial= 143mmHg. Right posterior tibial artery = 179mmHg. Right dorsalis pedis artery = 176mmHg. Right digit = 106 mmHg. Indices The right ankle brachial index by the posterior tibial artery is 1.25. The right ankle brachial index by the dorsalis pedis is 1.23. The right digital-brachial index is 0.74. The left ankle brachial index by the posterior tibial artery is 1.43. The left ankle brachial index by the dorsalis pedis is 1.40. The left digital-brachial index is 0.78. Interpretation Summary Triphasic Doppler waveforms are noted at ankle level bilaterally. Pulse-volume recordings appear satisfactory at all levels bilaterally, including low-thigh, calf, ankle, and digital levels. The resting right ankle-brachial index is normal. The resting left ankle-brachial index is supra-normal. Digital-brachial indices are normal bilaterally. There is evidence of arterial calcification at ankle level on the left. There is no evidence of significant arterial occlusive disease in the lower extremities bilaterally. Ordering Physician: Stanislav Zhang Referring Physician: Stanislav Zhang Performed By: Barbi Connelly RDCS/RVT
== END ==
PROVIDERS: PCP Family Medicine; Referring Provider Podiatrist; Visit Provider Podiatrist
DX: I73.9 Peripheral vascular disease, unspecified (principal)
CPT/HCPCS: 93923

== ENCOUNTER → 2020-11-25 13:16 | Outpatient (CLI) | payer MEDICARE, OTHER, SELFPAY ==
[2020-02-20 04:54] VITALS: BMI 29.2
--- NOTE | 2020-11-25 13:17 | CT_ITS ---
STUDY: CT MAXILLOFACIAL SINUSES REASON FOR EXAM: Male, 80 years old. NPH and allergic rhinitis. Ongoing dizziness. Unclear cause RADIATION DOSAGE (If Supplied By Facility): CTDIvol = ( 28.14 ) mGy, DLP = ( 514.03 ) mGycm TECHNIQUE: The patient was scanned in a multi detector CT scanner. High resolution axial imaging was performed without the administration of intravenous contrast material. Sagittal and coronal images were reconstructed. Individualized dose optimization techniques were used for this CT. COMPARISON: None. FINDINGS: A right-sided ventricular shunt tube is seen. Patient is known to have NPH. FRONTAL SINUSES: Normal aeration, without mucosal inflammatory disease. ETHMOIDAL SINUSES: Normal aeration, without mucosal inflammatory disease. MAXILLARY SINUSES: Normal aeration, without mucosal inflammatory disease. SPHENOIDAL SINUSES: Normal aeration, without mucosal inflammatory disease. There is patency of the bilateral maxillary infundibuli with normal uncinate processes, ethmoid bullae, and hiatus semilunaris. Normal bilateral middle turbinates. Normal bilateral inferior turbinates. Normal midline nasal septum. There is patency of the bilateral nasal airways. The visualized osseous structures are normal. The visualized bilateral orbital contents are normal. CT/Sinus/Facial Bone IMPRESSION: Normal CT examination of the maxillofacial sinuses. Electronically Signed: Devang Thomas MD at 14:23 EDT , Service support ,
--- NOTE | 2020-11-25 13:17 | CT_ITS ---
STUDY: CT BRAIN WITHOUT CONTRAST REASON FOR EXAM: Male, 80 years old. NPH and allergic rhinitis. Ongoing dizziness. Unclear cause RADIATION DOSAGE (If Supplied By Facility): CTDIvol = ( 38.43 ) mGy, DLP = ( 727.10 ) mGycm TECHNIQUE: Transaxial CT imaging of the brain was performed without administration of intravenous contrast material. Individualized dose optimization techniques were used for this CT. COMPARISON: Comparison is made with prior study 04/25/2018 FINDINGS: A posterior right-sided ventricular shunt tube is seen with the tip in the anterior aspect of the left lateral ventricle. Normal soft tissue structures. Normal calvarium. There is disproportionate enlargement of the lateral and third ventricles, as compared to the extra-axial spaces. The findings suggest normal pressure hydrocephalus (NPH). There are areas of decreased attenuation within the white matter tracts of the supratentorial brain, consistent with microvascular disease changes. Normal basal ganglia and thalami. Normal brainstem. Normal cerebellum. Prominent cisterna magna. This is unchanged. This is a normal variant. There is no intracranial hemorrhage. There are no findings of an acute ischemic infarction. Normal visualized paranasal sinuses. CT/Brain/Head without Contrast IMPRESSION: Stable examination. Electronically Signed: Devang Thomas MD at 14:24 EDT , Service support ,
== END ==
PROVIDERS: PCP Family Medicine; Referring Provider Family Medicine; Visit Provider Family Medicine
DX: R42 Dizziness and giddiness (principal); J30.9 Allergic rhinitis, unspecified
CPT/HCPCS: 70450; 70486

== ENCOUNTER 2021-01-26 09:00 | Outpatient (RCR) | payer MEDICARE, OTHER, SELFPAY ==
[2020-02-20 04:54] VITALS: BMI 29.2
--- NOTE | 2020-12-08 09:38 | HP.PTEVAL ---
Patient's Visit Information AVELINO LOUIS is a 80 year old M referred to Physical Therapy by Dr. Pedro Gonzalez MD with a diagnosis of Dizzyness and ataxia. Date of Evaluation: 12/08/20 Physical Therapist: Pedro Carrasco, PATELT, OCS, CSCS - Visit Plan Frequency: 2x /Week Duration: 4-6 Weeks Plan: Neurocom balance assessment then 2x/week for balance ex and progression of home balance, adaptation and LE strength postural e to help limit future problems. Focus will likely be gait, weight shifts, vestibular balance and VOR. - Subjective Balance is off. Has had a shunt put in. Is on xarelto. Has normal pressure hydrocephalus. Shunt has been in since 2019. Is here because balance is off and has gotten worse lately. Has had a couple falls and has to be more careful than used to, walking gingerly. Thinking before he moves. Trasnfers slower. Has rollator that he uses in the house by his bed and at night. Walkis holding onto . Walks 2 miles per day for fitness. No spinning. Looking for things that might help balance. Some times its really bad. Other times not so bad. Spends a lot of time in recliner. Has good days and bad days without pattern. Lives with . I with ADLS. Not employed. Spends day on word searches and games and the walking. Has home movies. - Objective Walks hand in hand with back to eval room. Walks without AD SBA for turning. Difficulty with head moevements and tends to look down at floor. Trasnfers bed adn chair I. Steps reciprocal with one rail and plenty of strength but lacks FW weight shift. reflexes patella and achilles 2/3, sensation LE WNL to gross light touch. motor control is poor at ankles with reciprocal tapping but OK with heel to burgess. Poor with inv/eversion ROM. Strength testing 4- ankles, 4+ knees adn 4 in hips abd, flex, ext. - B hallpike hira. - roll test. Oculomotor: no nystagmus with gaze or head shake. - skew eye deviation. - ocular tlt. Takes patient extra time to follow instructions, cognitively. Pursuit is slow and convergence is at deficit. Saccades are slow but able. VOR is hard for patinet to keep eyes on target with head movements. cervical aROM WFL and symmetrical. No dizzyness c/o today with any oculomotor or positional, only with LOB when turned too quickly walking. - Balance Scores Functional Gait Assessment Score: 21 % Disability: 30.0000 CATSIB Score (Max score 120 seconds): 85 - Goals Goal 1:: VOR x 60 secpnds without eyes off target Goal Time Frame: 4-6 Weeks Goal 2:: 24/30 FGA to limit fall risk Goal Time Frame: 4-6 Weeks Goal 3:: I appropriate home balance and eye ex to limit futre problems Goal Time Frame: 4-6 Weeks Goal 4:: Walk without needing to hold for one mile safely. Goal Time Frame: 4-6 Weeks - Rehabilitation Potential Physical Therapy Diagnosis: ataxic gait causing danger and sedentarism. Rehabilitation Potential: Questionable - Anticipated Interventions Patient/Client Instruction: Educate patient on: Condition, Plan of Care For the Purpose of:: To improve muscle performance and motor function, To increase tolerance to activity/condition/position, To improve ability of physical actions for home/community/work/leisure, To improve gait and locomotor functions Therapeutic Exercise to Include: Strength training, Balance training, Coordination, Gait and locomotor training, Neuromotor development For the Purpose of:: To improve muscle performance and motor function, To increase tolerance to activity/condition/position, To improve ability of physical actions for home/community/work/leisure, To improve gait and locomotor functions, To improve balance, To improve safety with gait Thank you for the opportunity to evaluate your patient. For Medicare and Medicare HMO plans, please review the plan of care and approve it. It will need to be FAXED BACK to us at [phone] for Medicare purposes. For Medicare only, by signing this I certify the plan of care. Please let me know if there are questions or concerns regarding this plan of care. Physician Signature: Date:
--- NOTE | 2020-12-15 16:44 | HP.PTCOM ---
PT Communication Note 12/15/[address] Pedro Gonzalez MD , Thank you for the referral of Christ to [facility] for balance assessment. I have enclosed a copy of the results for your review. He score low on the vestibular portion of the Sensory Organization test. He score slow on all portions of the Motor Control Test. he scored poorly on forward and backward weight shift excursiona dn control. With these results in mind, I plan to see him 2x/week for 4 weeks for balance and strengthening exercise to help with his condition. Please contact me if there are questions regarding his testing. Sincerely, Pedro Carrasco, DPT, OCS, CSCS Contact Information
--- NOTE | 2021-01-13 11:05 | HP.PTREVAL ---
Dr. Pedro Gonzalez MD, It has been my pleasure to treat AVELINO LOUIS over the last 10 visits for Dizzyness and ataxia. Please see the progress note below for an update on the physical therapy plan of care! Subjective: Feels about the same overall. agrees. Still feels dizzy kartik down for 20-30 seconds. Feels like a wave across head. Primarily on L side. Doing HEP 2x/day. Objective/Function: balance 2 points improved. No dizzyness or nystagmus today with hallpike hira or roll test but movements have to be very slow. Improving VOR,s till challenging to keep eyes ont arget but no dizzyness with horiz 60 seconds. Plan Plan: f/u two weeks for positional check, VOR check, balance check adn likely d/.c if no improvements Goals Goal 1:: VOR x 60 secpnds without eyes off target Goal Time Frame: 4-6 Weeks Goal Progress: Progressing Goal 2:: 24/30 FGA to limit fall risk Goal Time Frame: 4-6 Weeks Goal Progress: Progressing Goal 3:: I appropriate home balance and eye ex to limit futre problems Goal Time Frame: 4-6 Weeks Goal Progress: Progressing Goal 4:: Walk without needing to hold for one mile safely. Goal Time Frame: 4-6 Weeks Goal Progress: Progressing Anticipated Interventions Patient/Client Instruction: Educate patient on: Condition, Plan of Care For the Purpose of:: To improve muscle performance and motor function, To increase tolerance to activity/condition/position, To improve ability of physical actions for home/community/work/leisure, To improve gait and locomotor functions Therapeutic Exercise to Include: Strength training, Balance training, Coordination, Gait and locomotor training, Neuromotor development For the Purpose of:: To improve muscle performance and motor function, To increase tolerance to activity/condition/position, To improve ability of physical actions for home/community/work/leisure, To improve gait and locomotor functions, To improve balance, To improve safety with gait Please do not hesitate to contact me at [phone] by phone or if you have questions or concerns regarding this new plan of care! Sincerely, Pedro Carrasco, DPT, OCS, CSCS
--- NOTE | 2021-01-26 09:27 | HP.PTDCSUM ---
It has been my pleasure to treat AVELINO LOUIS referred by Dr. Pedro Gonzalez MD, with the diagnosis of Dizzyness and ataxia for a total of 11 visit(s). Discharge Date: Please see the following information for a summary of their discharge status. Subjective: Has had some dizzyness with exercise first three days and then gone. No other dizzyness. No dizzyness in a while. Balance feels Ok.Has to be careful still in walking. says only uses walker at night for safety. To doctor end February. % Improvement: 25 Objective/Function: FGA +3 overall and doing well for age considering diagnosis. Walks in speedily adn not holiding onto , easily. Trasnfers without EU ,steps reciprocal with one rail. No dizzyness lately. Overall doing very well. Goal 1:: VOR x 60 secpnds without eyes off target Goal Progress: not perfect R. Goal 2:: FGA to limit fall risk Goal Progress: Progressing Goal 3:: I appropriate home balance and eye ex to limit futre problems Goal Progress: Goal Met Goal 4:: Walk without needing to hold for one mile safely. Goal Progress: Goal Met Plan: d/c If there are questions or concerns regarding this patient's physical therapy, please feel free to call me at [phone]. Thank you for the referral of this patient. Sincerely, Pedro Carrasco, DPT, OCS, CSCS
== END 2021-01-26 12:00 | disposition home or self-care (01) ==
LOC: PT 09:00
PROVIDERS: PCP Family Medicine; Referring Provider Family Medicine; Visit Provider Family Medicine
DX: R42 Dizziness and giddiness (principal); R27.0 Ataxia, unspecified
CPT/HCPCS: 97110; 97162; 97164; 97530; 97750

== ENCOUNTER → 2021-04-05 12:24 | Outpatient (CLI) | payer MEDICARE, OTHER, SELFPAY ==
[2020-02-20 04:54] VITALS: BMI 29.2
--- NOTE | 2021-04-05 12:26 | RAD_ITS ---
STUDY: X-RAY CHEST REASON FOR EXAM: Male, 81 years old. Atypical chest and back pain. TECHNIQUE: Frontal and lateral views of the chest. COMPARISON: 09/04/2012. FINDINGS: METAL FURNITURE POLISHER shunt noted. Hyperexpansion with scattered healed granulomatous calcifications unchanged. There is no demonstrated pleural abnormality. Stable mild cardiomegaly. Normal mediastinum and carlos. Normal visualized pulmonary arteries. Normal visualized aortic arch and descending thoracic aorta. Stable thoracic spondylosis with osteopenia. Normal visualized ribs, clavicles, and shoulders. There is no demonstrated abnormality of the visualized soft tissue structures of the upper abdomen. RAD/Chest PA and Lateral IMPRESSION: New METAL FURNITURE POLISHER shunt. Stable cardiomegaly with hyperexpansion. No active or acute cardiopulmonary disease. Electronically Signed: Tomy Sotelo MD at 9:42 EDT , Service support ,
[2021-04-05 15:04] LABS: Absolute Lymphocyte Count 1.91 X10^3/uL (0.83-4.51); Absolute Neutrophil Count 4.3 X10^3/uL (2.0-7.7); Basophil# 0.03 X10^3/uL; Basophil% 0.4 % (0-1); Eosinophil# 0.08 X10^3/uL; Eosinophils% 1.1 % (0-5); Hematocrit 51.2 % (40-54); Hemoglobin 16.5 g/dL (13.0-16.5); Lymphocyte # 1.91 X10^3/ul (0.83-4.51); Lymphocyte % 26.6 % (19-41); Mean Corp Hgb Conc 32.2 g/dL (32-36); Mean Corpuscular Hgb 30.3 pg (27.0-32.0); Mean Corpuscular Volume 94.1 fL (80-94); Mean Platelet Vol. 9.5 fl (6.2-12.0); Monocyte# 0.85 X10^3/uL; Monocyte% 11.8 % (0-10); NRBC Flagged by Analyzer 0 % (0-5); Neutrophil % 59.8 % (47-70); Platelet Count 223 K/mm3 (150-450); RBC Distribution Width CV 12.4 % (11.6-14.6); RBC Distribution Width SD 42.6 fl (35.1-43.9); Red Blood Count 5.44 M/mm3 (4.6-6.2); White Blood Count 7.2 K/mm3 (4.4-11.0)
[2021-04-05 15:16] LABS: Fibrinogen 524 mg/dl (203-444)
[2021-04-05 15:24] LABS: AST(SGOT) 33 U/L (15-37); Alanine Aminotransfer ALT/SGPT 38 U/L (16-61); Albumin, Serum 3.7 g/dL (3.2-5.0); Alkaline Phosphatase 134 U/L (45-117); Anion Gap 5 (5-15); BUN 9 mg/dL (7-18); BUN/Creat Ratio 8.7 RATIO (10-20); Calcium,Total 9.2 mg/dL (8.5-10.1); Chloride 103 mmol/L (98-107); Creatinine, Serum 1.03 mg/dL (0.70-1.30); EST Glomerular Filtration Rate 74 mL/min (>60); Est Glom Filt Rate - Afr Amer 89 mL/min (>60); Ferritin 348 ng/mL (26-388); Globulin 3.8 g/dL (2.2-4.2); Glucose 102 mg/dL (74-106); Lipase 28 U/L (73-393); Potassium 4.3 mmol/L (3.5-5.1); Protein, Total 7.5 g/dL (6.4-8.2); Sodium Level 137 mmol/L (136-145)
[2021-04-05 15:36] LABS: D-Dimer Quantitative (DVT/PE) 1.01 FEU/ug/m (0.27-0.49)
== END ==
PROVIDERS: PCP Family Medicine; Referring Provider Family Medicine; Visit Provider Family Medicine
DX: R07.89 Other chest pain (principal); R11.0 Nausea
CPT/HCPCS: 36415; 71046; 80053; 82728; 83690; 85025; 85379; 85384; 86140

== ENCOUNTER 2021-04-05 16:43 | Emergency (ER) | payer MEDICARE, OTHER, SELFPAY ==
[2020-02-20 04:54] VITALS: BMI 29.2
[2021-04-05 16:43] VITALS: BP 167/95; PULSE 86; RESP 18; TEMP 36.3; O2SAT 96; BMI 29.9
--- NOTE | 2021-04-05 16:58 | CT_ITS ---
EXAM: CT ANGIOGRAPHY CHEST, ABDOMEN AND PELVIS WITH INTRAVENOUS CONTRAST CLINICAL INDICATION: right sided pain, elevated d-dimer TECHNIQUE: Helically acquired angiography images were obtained of the chest, abdomen and pelvis with intravenous contrast. This CT exam was performed using one or more of the following dose reduction techniques: automated exposure control, adjustment of the mA and/or kV according to patient size, and/or use of iterative reconstruction technique. [employer] report generation technology utilized. MIP reconstructed images were created and reviewed. CONTRAST: 100 ML ISOVUE 370 COMPARISON: 02/20/2020, 08/29/2019, MRI 04/08/2018 FINDINGS: VASCULATURE: AORTA: No acute findings. Normal in caliber. No dissection. PULMONARY ARTERIES: Unremarkable. Normal in caliber. No obvious central pulmonary embolism although this study was not performed with the pulmonary embolism protocol. GREAT VESSELS OF AORTIC ARCH: Unremarkable. Normal in caliber. No dissection. CELIAC TRUNK AND MESENTERIC ARTERIES: No acute findings. No occlusion or significant stenosis. No dissection. RENAL ARTERIES: No acute findings. No occlusion or significant stenosis. No dissection. ILIAC ARTERIES: No acute findings. No occlusion or significant stenosis. No dissection. CHEST: LUNGS AND PLEURAL SPACES: Normal lung volumes. No infiltrates or effusions seen. Noncalcified 1 cm nodule of the left lower lobe, axial image 49. Neoplasm not excluded. No pneumothorax. HEART: Unremarkable. Heart size is normal. No pericardial effusion. MEDIASTINUM: Unremarkable. No mediastinal or hilar adenopathy. Esophagus is unremarkable. No hiatal hernia. THYROID: Unremarkable. No thyroid lesions. ABDOMEN: LIVER: Very subtle mass suggested in the posterior segment of the right lobe of the liver, 8 cm in size. Not definitely present previously. Neoplasm is strongly suggested. GALLBLADDER AND BILE DUCTS: Unremarkable. No calcified gallstones. No gallbladder distention or wall edema. No intra- or extrahepatic biliary ductal dilation. PANCREAS: Fatty atrophy of the pancreas. No focal cystic or solid mass. SPLEEN: Unremarkable. Normal size without focal cystic or solid mass. ADRENALS: Unremarkable. No nodules. KIDNEYS AND URETERS: Unremarkable. Normal renal size and position. No hydronephrosis. STOMACH AND BOWEL: Unremarkable. No stomach or bowel distention. No focal inflammatory change. PELVIS: APPENDIX: No evidence of acute appendicitis. BLADDER: Unremarkable. REPRODUCTIVE: Unremarkable as visualized. No mass. CHEST, ABDOMEN and PELVIS: INTRAPERITONEAL SPACE: Unremarkable. No ascites or other fluid collection. No free air. BONES/JOINTS: Degenerative changes throughout the skeletal structures. Compression fracture of L3, stable. SOFT TISSUES: Unremarkable. No discrete abdominal or pelvic wall hernia. LYMPH NODES: Unremarkable. No enlarged lymph nodes. TUBES, LINES AND DEVICES: RADIATOR CLEANER shunt catheter of the anterior right chest wall terminating in the right lower quadrant, stable. IMPRESSION: 1. 1 cm suspicious nodule in the left lower lobe. 2. No evidence of PE, aneurysm or dissection. 3. 8 cm mass in the posterior segment of the right lobe of the liver. Consider biopsy. Electronically Signed: Wolf Mo MD at 18:50 EDT , Service support , EXAM: CT ANGIOGRAPHY CHEST, ABDOMEN AND PELVIS WITH INTRAVENOUS CONTRAST CLINICAL INDICATION: right sided pain, elevated d-dimer TECHNIQUE: Helically acquired angiography images were obtained of the chest, abdomen and pelvis with intravenous contrast. This CT exam was performed using one or more of the following dose reduction techniques: automated exposure control, adjustment of the mA and/or kV according to patient size, and/or use of iterative reconstruction technique. [employer] report generation technology utilized. MIP reconstructed images were created and reviewed. CONTRAST: 100 ML ISOVUE 370 COMPARISON: 02/20/2020, 08/29/2019, MRI 04/08/2018 FINDINGS: VASCULATURE: AORTA: No acute findings. Normal in caliber. No dissection. PULMONARY ARTERIES: Unremarkable. Normal in caliber. No obvious central pulmonary embolism although this study was not performed with the pulmonary embolism protocol. GREAT VESSELS OF AORTIC ARCH: Unremarkable. Normal in caliber. No dissection. CELIAC TRUNK AND MESENTERIC ARTERIES: No acute findings. No occlusion or significant stenosis. No dissection. RENAL ARTERIES: No acute findings. No occlusion or significant stenosis. No dissection. ILIAC ARTERIES: No acute findings. No occlusion or significant stenosis. No dissection. CHEST: LUNGS AND PLEURAL SPACES: Normal lung volumes. No infiltrates or effusions seen. Noncalcified 1 cm nodule of the left lower lobe, axial image 49. Neoplasm not excluded. No pneumothorax. HEART: Unremarkable. Heart size is normal. No pericardial effusion. MEDIASTINUM: Unremarkable. No mediastinal or hilar adenopathy. Esophagus is unremarkable. No hiatal hernia. THYROID: Unremarkable. No thyroid lesions. ABDOMEN: LIVER: Very subtle mass suggested in the posterior segment of the right lobe of the liver, 8 cm in size. Not definitely present previously. Neoplasm is strongly suggested. GALLBLADDER AND BILE DUCTS: Unremarkable. No calcified gallstones. No gallbladder distention or wall edema. No intra- or extrahepatic biliary ductal dilation. PANCREAS: Fatty atrophy of the pancreas. No focal cystic or solid mass. SPLEEN: Unremarkable. Normal size without focal cystic or solid mass. ADRENALS: Unremarkable. No nodules. KIDNEYS AND URETERS: Unremarkable. Normal renal size and position. No hydronephrosis. STOMACH AND BOWEL: Unremarkable. No stomach or bowel distention. No focal inflammatory change. PELVIS: APPENDIX: No evidence of acute appendicitis. BLADDER: Unremarkable. REPRODUCTIVE: Unremarkable as visualized. No mass. CHEST, ABDOMEN and PELVIS: INTRAPERITONEAL SPACE: Unremarkable. No ascites or other fluid collection. No free air. BONES/JOINTS: Degenerative changes throughout the skeletal structures. Compression fracture of L3, stable. SOFT TISSUES: Unremarkable. No discrete abdominal or pelvic wall hernia. LYMPH NODES: Unremarkable. No enlarged lymph nodes. TUBES, LINES AND DEVICES: RADIATOR CLEANER shunt catheter of the anterior right chest wall terminating in the right lower quadrant, stable. CT/CTA Chst, Abd, Pel W and/or WO
--- NOTE | 2021-04-05 16:59 | EDS_ITS ---
HPI History of Present Illness Chief Complaint: Abn Labs Informant: patient Onset/Context/Timing Onset: Weeks (1.5-week) Context: Gradual Onset Timing: Intermittent Current Severity: Gone Maximum Severity: Mild Narrative Narrative: Patient sent in from PCPs office secondary to elevated D-dimer. Patient was seen in the office today for a 1-1/2-week history of intermittent pain in the right chest and abdomen. D-dimer returned elevated at 1.01 and patient was sent in for CTA of the chest, abdomen, and pelvis. Patient does have a history of arterial clot as well as PE. He is on chronic Xarelto. Patient denies shortness of breath. Pain is not necessarily exertional. He denies pain radiating into his legs. No paresthesias or weakness. No fever or chills. Blood work from earlier today is reviewed and patient has normal creatinine at 1.03 [facility] Medical History Anxiety and depression BPH (benign prostatic hyperplasia) CVA (cerebral vascular accident) Debility Diverticulosis GERD (gastroesophageal reflux disease) Hemorrhoid Herpes zoster History of CVA (cerebrovascular accident) Hydrocephalus Hypothyroidism Intractable pain NPH (normal pressure hydrocephalus) Pancreatitis Shingles outbreak Urinary calculi Ventral incisional hernia without obstruction or gangrene VTE (venous thromboembolism) Home Medications cholecalciferol (vitamin D3) 5,000 unit PO DAILY 08/06/14 [History Last Taken 11/14/18] finasteride 5 mg PO DAILY 10/14/16 [History Last Taken 11/14/18] levothyroxine 75 mcg PO MOTUWETHFRSA 10/14/16 [History Last Taken 11/14/18] tamsulosin 0.4 mg PO DAILY 10/14/16 [History Last Taken 11/14/18] bupropion HCl 300 mg PO DAILY 05/24/17 [History Last Taken 11/14/18] rivaroxaban 20 mg PO DAILY 05/24/17 [History Last Taken 11/14/18] vitamin B complex 1 ea PO DAILY 05/24/17 [History Last Taken Unknown] Juvencio Awilda Plus 1 tab PO DAILY 12/26/18 [History Last Taken Unknown] melatonin 1 mg PO QHS 12/26/18 [History Last Taken Unknown] Magnesium 400 mg PO TID 08/21/19 [History Last Taken Unknown] ascorbic acid (vitamin C) 500 mg tablet 500 mg PO DAILY 08/21/19 [History Last Taken Unknown] calcium citrate 500 mg PO BID tab 08/21/19 [History Last Taken Unknown] esomeprazole magnesium 40 mg capsule,delayed release 20 mg PO DAILY cap 08/21/19 [History Last Taken Unknown] mirtazapine 15 mg tablet 15 mg PO DAILY 08/21/19 [History Last Taken Unknown] amitriptyline 10 mg PO QHS #30 tab 02/21/20 [Rx Last Taken Unknown] Allergy/AdvReac Type Severity Reaction Status Date / Time No Known Allergies Allergy Verified 04/05/21 16:46 Family History Father Melanoma Mother Congestive heart failure Brother Skin cancer Surgical History History insertion CELERY STRIPPER shunt History of left inguinal hernia repair History of partial thyroidectomy History of tonsillectomy Hx of resection of small bowel Hx of sinus surgery S/P cholecystectomy Social History Smoking Status: Never smoker ROS ROS ED Constitutional Constitutional ED: Denies chills or fever(s) Eyes Eyes: Denies change in vision ENT ENT ED: Denies sore throat Cardiovascular Cardiovascular: Reports chest pain Respiratory/Chest Respiratory/Chest: Denies cough or dyspnea Gastrointestinal Gastrointestinal: Reports abdominal pain; Denies diarrhea, nausea or vomiting Genitourinary Genitourinary ED: Denies dysuria Musculoskeletal Musculoskeletal: Reports back pain Integumentary Denies rash Neurologic Neurologic: Denies headache(s) or weakness Psychiatric Psychiatric: Denies anxiety or depression Allergic/Immunologic Allergic/Immunologic ED: Denies urticaria EXAM Physical Exam Const Vital Signs: 04/05/21 16:43 04/05/21 16:49 Temperature 97.3 F L Temperature Source Temporal Pulse Rate 86 Respiratory Rate 18 Respiratory Effort Normal Non-Labored Blood Pressure 167/95 H Blood Pressure Mean 119 Pulse Ox 96 Oxygen Delivery Method Room Air Positive well nourished and well developed General Appearance ED: well developed HEENT Reports normocephalic and head/scalp atraumatic Eyes PERRL and EOMs intact bilaterally Neck supple Chest Wall inspection of chest normal and palpation of chest normal Resp normal respiratory effort and clear to auscultation bilaterally Cardio regular rate and regular rhythm GI normal to inspection, nondistended, normoactive bowel sounds and non-tender Palpation: soft Extremity normal to inspection Neuro oriented x3 and no sensory deficits noted Sensorium / Orientation: alert Motor Exam: strength 5/5 throughout Psych mental status grossly normal Skin no rashes or lesions noted MDM MDM MDM Narrative Medical decision making narrative: Lab work from earlier today is reviewed. CTA of the chest, abdomen, and pelvis is ordered. Radiography Diagnostic Testing: Radiology Impression Chest/Abdomen/Pelvis CTA 04/05/21 16:58 IMPRESSION: 1. 1 cm suspicious nodule in the left lower lobe. 2. No evidence of PE, aneurysm or dissection. 3. 8 cm mass in the posterior segment of the right lobe of the liver. Consider biopsy. Electronically Signed: Wolf Mo MD at 18:50 EDT , Service support , Treatment and Re-Evaluation Comments:: CTA reveals no evidence of PE or dissection. There is an 8 cm mass in the posterior liver that will likely need a biopsy. This was discussed with patient and at bedside. I did discuss this with Dr. Gaming, on-call for Dr. Gonzalez as well. If the patient does not hear from the office within the next 2 days he is to call. Plans were made for follow-up and biopsy. Discharge Plan Triage Chief Complaint: Abn Labs ED Provider: Carolyn Almaraz Dx/Rx/DC Orders Clinical Impression: Abdominal pain, Liver mass Instructions: Abdominal Pain Prescriptions: No Action mirtazapine 15 mg tablet 15 mg PO DAILY RF: 0 ascorbic acid (vitamin C) 500 mg tablet 500 mg PO DAILY RF: 0 cholecalciferol (vitamin D3) 1,000 UNIT tablet 5,000 unit PO DAILY RF: 0 levothyroxine 75 MCG tablet 75 mcg PO MOTUWETHFRSA RF: 0 tamsulosin 0.4 MG capsule 0.4 mg PO DAILY RF: 0 finasteride 5 MG tablet 5 mg PO DAILY RF: 0 esomeprazole magnesium 40 mg capsule,delayed release(DR/EC) 20 mg PO DAILY RF: 0 Magnesium 400 mg PO TID RF: 0 vitamin B complex 1 EACH tablet 1 ea PO DAILY RF: 0 bupropion HCl 300 MG tablet extended release 24 hr 300 mg PO DAILY RF: 0 rivaroxaban 20 MG tablet 20 mg PO DAILY RF: 0 melatonin 1 MG tablet 1 mg PO QHS RF: 0 Juvencio Awilda Plus 1 tab PO DAILY RF: 0 calcium citrate 250 mg calcium tablet 500 mg PO BID RF: 0 amitriptyline 10 MG tablet 10 mg PO QHS Qty: 30 RF: 0 Primary Care Provider: Pedro Gonzalez Referrals: Pedro Gonzalez MD [Primary Care Provider] - 3-5 Days Disposition Disposition: Home, Self Care
[2021-04-05] MEDS: Ondansetron ODT 4 MG Tablet PO (18:53)
[2021-04-05 19:16] VITALS: BP 173/92; PULSE 77; RESP 16; O2SAT 96
== END 2021-04-05 19:20 | disposition home or self-care (01) ==
PROVIDERS: Emergency Provider Emergency Medicine; PCP Family Medicine
DX: R10.9 Unspecified abdominal pain (principal); R07.89 Other chest pain; R11.0 Nausea; Z79.02 Long term (current) use of antithrombotics/antiplatelets
CPT/HCPCS: 36415; 71046; 71275; 74174; 80053; 82728; 83690; 85025; 85379; 85384; 86140; 99284; Q9967; A4216

== ENCOUNTER → 2021-04-14 08:43 | Outpatient (CLI) | payer MEDICARE, OTHER, SELFPAY ==
[2021-04-07 15:00] VITALS: BMI 29.7
[2021-04-14] VITALS (8 sets, daily range): BP systolic 158–178; BP diastolic 61–100; PULSE 78–96; RESP 15–26; TEMP 36.9; O2SAT 95–100; BMI 29.0
--- NOTE | 2021-04-14 | IMM_PTH ---
PATIENT: AVELINO LOUIS LOC: CT U#:[id number] AGE/SX: 85/M ROOM: RE04/14/[address]: Dr. Yordy Warren MD : 1940 BED: DIS: SPEC #: [id number] RECD: 04/15/21 12:53 STATUS: KALYN REQ #: [id number] NIMO: 04/14/21 00:[address]: Yordy Warren DEPT: IMMUNOHISTOCHEMISTRY RECD BY: Luz Jackson ENTERED: 04/15/21 12:55 SP TYPE: IMMUNO OTHR DR: Dr. Pedro Gonzalez MD Tissues: Liver, NOS Procedures: RCC (add) NAPSIN A (add) CK20 (add) CK5-6 (add) CK7 (add) CK8 (add) HEP PAR (add) TTF1 (add) Pankeratin (initial) P40 (add) PSAP (add) PHYSICIAN & [address] [address] SPECIMEN INFORMATION: Tissue Source: Liver mass Clinical Info: Liver mass Specimen Number: [id number] CPT code: 17779, 22144 x10 METHODOLOGY: Deparaffinized sections of prefer/formalin-fixed tissue or PAP/DQ stained slides are incubated with monoclonal/polyclonal antibodies/oligonucleotide probes. Localization is made via biotin free immunoperoxidase method. Appropriate controls are performed and reacted as expected. Results on target cell population are indicated in the following table: RESULTS: ANTIBODY / CLONE RESULT AE1-3 (AE1/AE3/PCK26) positive CK7 (OV-TL12/30) positive CK8 (82znqjQ69) positive CK20 (KS20.8) negative TTF-1 (8G7G3/1) negative Napsin A (Rabbit Polyclonal) negative HepPar (OCh1E5) negative RCC (PN-15) negative PSAP (PASE/4LJ) negative CK5-6 (D5 & 1684) negative P40 (BC28) negative These tests were developed and their performance characteristics determined by [facility]. They may not have been cleared or approved by the [place]. Food and Drug Administration. The FDA has determined that such clearance or approval is not necessary. The above immunohistochemical/dualISH markers are ordered and reviewed by the Pathologist. INTERPRETATION: Liver mass, CT-guided biopsy: Metastatic adenocarcinoma. See comment. JAZMIN:catracho 04/18/2021 Comment: IHC profile favors, but not limited to, upper gastrointestinal tract, pancreas or lung primary. Clinical correlation is necessary.
--- NOTE | 2021-04-14 | ASPIGT_PTH ---
PATIENT: AVELINO LOUIS LOC: CT U#:[id number] AGE/SX: 85/M ROOM: RE04/14/[address]: Dr. Yordy Warren MD : 1940 BED: DIS: SPEC #: [id number] RECD: 04/14/21 11:30 STATUS: KALYN REJoanna #: [id number] NIMO: 04/14/21 00:[address]: Yordy Warren DEPT: SURGICAL PATHOLOGY RECD BY: Radha Britt ENTERED: 04/14/21 12:30 SP TYPE: ASP RAD OTHR DR: Dr. Pedro Gonzalez MD Tissues: Liver, NOS Procedures: FNA Specimen Adequacy Special Stain Group II Surgery Specimen Level IV Surgery Specimen Level V Imprint (control) HEADER OPERATION: CT-guided liver biopsy PRE-OP DIAGNOSIS: Liver mass TISSUE SUBMITTED: Liver biopsy 18-gauge core x4 MICROSCOPIC DIAGNOSIS Liver mass, CT-guided core biopsy: Metastatic adenocarcinoma. See comment. JAZMIN:catracho 04/15/2021 COMMENT The specimen is evaluated at the time of biopsy by Dr. [place]. Immediate Evaluation = A few atypical cells suspicious for malignancy noted. Immunohistochemistry ([id number]) supports the above diagnosis. IHC profile favors but not limited to upper gastrointestinal tract, pancreas or lung primary. Correlation with clinical, radiologic findings and appropriate follow up are necessary. Case has been reviewed in consultation with Dr. Loomis who concurs with the above diagnosis. IDC:AM MICROSCOPIC DESCRIPTION Slides are reviewed. GROSS DESCRIPTION Received in fixative is one container labeled with the patient's name and designated liver, CT-guided core biopsy. The specimen consists of multiple elongated fragments of hilton soft tissue that in aggregate measure 2 x 0.5 x 0.1 cm. The entire specimen is submitted in one cassette. Two touch imprints are prepared at the time of core biopsy. / JAZMIN:catracho 04/14/21 TC:0 CPT: 32540, 80382
[2021-04-14 08:56] LABS: Absolute Lymphocyte Count 1.66 X10^3/uL (0.83-4.51); Absolute Neutrophil Count 5.5 X10^3/uL (2.0-7.7); Basophil# 0.04 X10^3/uL; Basophil% 0.5 % (0-1); Eosinophil# 0.03 X10^3/uL; Eosinophils% 0.4 % (0-5); Hematocrit 46.8 % (40-54); Hemoglobin 15.4 g/dL (13.0-16.5); Lymphocyte # 1.66 X10^3/ul (0.83-4.51); Lymphocyte % 20.5 % (19-41); Mean Corp Hgb Conc 32.9 g/dL (32-36); Mean Corpuscular Hgb 30.7 pg (27.0-32.0); Mean Corpuscular Volume 93.2 fL (80-94); Mean Platelet Vol. 8.9 fl (6.2-12.0); Monocyte% 11.1 % (0-10); NRBC Flagged by Analyzer 0 % (0-5); Neutrophil # 5.45 X10^3/uL (2.7-7.7); Neutrophil % 67.3 % (47-70); Platelet Count 256 K/mm3 (150-450); RBC Distribution Width SD 41.4 fl (35.1-43.9); Red Blood Count 5.02 M/mm3 (4.6-6.2); White Blood Count 8.1 K/mm3 (4.4-11.0)
[2021-04-14 09:05] LABS: International Normalized Ratio 1.1; Partial Thromboplast Time 28.7 Seconds (24.1-36.2); Prothrombin Time (Protime)PT. 13.4 SECONDS (11.7-14.9)
[2021-04-14] MEDS: Midazolam 2 MG/2 ML Syringe IV (10:38)
[2021-04-14] MEDS: Lidocaine 2% (20 ml mdv) 20 ML Vial INFILT (10:38)
[2021-04-14] MEDS: fentaNYL 100 MCG/2 ML Ampul IV ×2 (10:41→10:48)
--- NOTE | 2021-04-14 10:49 | CT_ITS ---
PROCEDURE: CT DIRECTED CORE LIVER BIOPSY INDICATION: Male, 81 years old. LIVER MASS PHYSICIAN: Dr. ESTELA Hernandez CONSENT: Written informed consent was obtained having explained the risks, benefits and alternatives in detail with the patient who accepted the risks and agreed to proceed. Laboratory review and clinical assessment was performed. CONSCIOUS SEDATION PROTOCOL: The Drugs used were: 1 mg Versed, IV., and 50 mcg Fentanyl, IV. The sedation time was: 11 minutes. Conscious sedation was started at 10:38 AM and terminated at 10:49 AM. The conscious sedation protocol was independently monitored. RADIATION DOSAGE (If Supplied By Facility): CTDIvol = ( 18 ) mGy, DLP = ( 863.28 ) mGycm Individualized dose optimization techniques were used for this CT. TECHNIQUE: Using CT image guidance with image documentation, a suitable location in the right lobe of the liver was identified. Using a right lateral approach, puncture of the liver was uneventful with an 18-gauge core needle system. 4, 18-gauge core samples were obtained, and submitted in formalin to the pathologist for further assessment. Followup CT scan revealed no distinct sequelae. CT/Biopsy/Inj or Needle Placement IMPRESSION: 1. CT directed core needle biopsy of the liver, using CT image guidance with image documentation as described. 2. Conscious Sedation protocol utilized with independent monitoring. Electronically Signed: Devang Thomas MD at 11:15 EDT , Service support ,
== END | disposition home or self-care (01) ==
PROVIDERS: PCP Family Medicine; Referring Provider Internal Medicine Hematology & Oncology; Visit Provider Internal Medicine Hematology & Oncology
DX: Z01.818 Encounter for other preprocedural examination (principal); R16.0 Hepatomegaly, not elsewhere classified; Z86.73 Personal history of transient ischemic attack (TIA), and cerebral infarction without residual deficits; C79.9 Secondary malignant neoplasm of unspecified site; Z79.01 Long term (current) use of anticoagulants
CPT/HCPCS: 47000; 36415; 77012; 85025; 85610; 85730; 88172; 88305; 88307; 88313; 88341; 88342; J7040; A4216